=== PATIENT | female | born 2000 | race Caucasian/White ===

== ENCOUNTER 2021-10-02 07:18 | Emergency (ER) | payer BC, SELFPAY ==
--- NOTE | ~2021-10-02 | CT_ITS ---
EXAMINATION: CT ABDOMEN AND PELVIS WITHOUT CONTRAST CLINICAL INFORMATION: Right lower quadrant abdominal pain COMPARISON: None TECHNIQUE: Multidetector volumetric imaging was performed from the superior aspect of the liver through the pubic symphysis. Sagittal and coronal reformatted images were obtained on the technologist's workstation. This CT examination was performed using dose optimization techniques as appropriate, variously including the following: *Automated exposure control *Adjustment of mA and/or kV according to patient size (this includes techniques or standardized protocols for targeted exams where dose is matched to indication/reason for exam; i.e. extremities or head) *Use of iterative reconstruction technique DLP: 327 mGy-cm FINDINGS: Visualized lung bases are well aerated. The liver demonstrates normal size, contour and attenuation. The gallbladder is normal in appearance. The pancreas, spleen and adrenal glands are unremarkable. Symmetrically sized kidneys. No renal calculi or hydronephrosis bilaterally. Normal caliber loops of small and large bowel. Mild colonic stool burden. Normal appendix. Normal caliber abdominal aorta. The bladder is normal in appearance. Unremarkable CT appearance of the uterus. Small amount of free pelvic fluid, likely physiologic. No inguinal lymphadenopathy. No acute osseous abnormality. Mild dextroscoliosis of the spine, possibly positional. CT/CT abdomen pelvis wo con IMPRESSION: No CT evidence for acute abnormality within the abdomen or pelvis. Fleischner guidelines were followed.
[2021-10-02 08:58] VITALS: BP 135/79; PULSE 91; RESP 18; TEMP 36.8; O2SAT 100; BMI 17.8
[2021-10-02 09:23] LABS: MANUAL DIFF FLAG NO
[2021-10-02 09:25] LABS: Basophils Percent Auto 0.5 % (0-2); Eosinophils Percent Auto 0.4 % (0-4); Hematocrit 41.7 % (37.0-47.0); Hemoglobin 14.1 g/dl (12.0-16.0); Imm Gran Abs Auto 0.01 X10*3/uL (0.00-0.03); Imm Gran Pct Auto 0.2 % (0.0-0.4); Lymphocytes Absolute Auto 1.7 X10*3/uL (1.2-4.9); Lymphocytes Percent Auto 29.2 % (20-40); Mean Corpuscular HGB Conc 33.8 g/dl (31.0-35.0); Mean Corpuscular Hemoglobin 30.8 pg (27.0-33.0); Mean Platelet Volume 9.7 fL (9.4-12.3); Monocytes Absolute Auto 0.4 X10*3/uL (0.1-1.2); Neutrophils Absolute Auto 3.6 x10*3/uL (2.0-8.3); Neutrophils Percent Auto 62.7 % (45-73); Platelet Count 234 X10*3/uL (160-400); Red Blood Count 4.58 X10*6/uL (4.20-5.50); Red Cell Distribution Width 13.1 % (11.0-16.0); White Blood Count 5.7 X10*3/uL (4.8-10.8)
[2021-10-02 09:29] LABS: UPreg QC Valid YES; Urine Pregnancy NEGATIVE (NEGATIVE)
[2021-10-02 09:41] LABS: Appearance Urine HAZY; Color Urine YELLOW; Glucose Urine UA NEG (NEG); Leukocyte Esterase Urine NEG (NEG); Nitrite Urine NEG (NEG); UACC Culture Trigger NO; Urine Blood 3+ (NEG); Urine Ketones NEG (NEG); Urine Protein NEG (NEG-TRACE)
[2021-10-02 09:47] LABS: Alanine Aminotransferase 12 U/L (0-31); Albumin Level 4.5 g/dL (3.5-5.0); Alkaline Phosphatase 43 U/L (39-117); Anion Gap 9 (12-20); Aspartate Amino Transferase 13 U/L (5-31); Bilirubin Total 0.4 mg/dL (0.0-1.0); Blood Urea Nitrogen 10 mg/dL (9-16); Calcium 9.8 mg/dL (8.4-10.2); Carbon Dioxide 25 mmol/L (22-29); Chloride 109 mmol/L (96-108); Estimated Glomerular Filt Rate > 60; Glucose Random 102 mg/dL (60-115); Lipase 50 U/L (8-78); Potassium 4.4 mmol/L (3.3-5.1); Renal Epithelial Cells Urine TRACE /LPF; Sodium 139 mmol/L (135-145); Squamous Epithelial Cell Urine 2+ /LPF; Total Protein 7.2 g/dL (6.5-8.0)
[2021-10-02 09:48] LABS: RBC Urine 0-2 /HPF (0); WBC Urine 0-2 /HPF (0-4)
--- NOTE | 2021-10-02 11:26 | ED.ABDPAIN ---
HPI - Abdominal Pain General Chief Complaint: Abdominal Pain Stated Complaint: r side pain Time Seen by Provider: 10/02/21 11:25 Source: patient Mode of arrival: ambulatory Limitations: no limitations History of Present Illness HPI narrative: 19-year-old female presents with right lower quadrant abdominal pain that started this morning. Patient states that at 3 or 04:00 this morning she woke up because she was nauseous. She vomited twice, she had diarrhea twice, and since then she has had sharp shooting pains in her right lower quadrant. Her period started September 29, she is still on her. She thought initially it was. Cramps, but the pain is worsening. It is worse with movement, worse with cough. It is a sharp stabbing pain and she rates it a 9/10. No radiation to her back. Patient is sexually active, no new partners, she uses condoms. No vaginal discharge prior to her periods. She last ate at 06:00 this morning. No fevers. No dysuria. Patient has never had any abdominal surgeries Related Data Previous Rx's Medication Instructions Recorded ketorolac 10 mg tablet 10 mg PO QID 4 Days #16 tab 10/02/21 Allergies Allergy/AdvReac Type Severity Reaction Status Date / Time amoxicillin Allergy Hives Verified 10/02/21 08:58 Penicillins Allergy Hives Verified 10/02/21 08:58 Review of Systems Constitutional: Denies body ache(s), Denies chills, Denies fatigue, Denies fever(s), Denies headache(s), Denies malaise and Denies weakness Eyes: Denies diplopia Denies vertigo, Denies dizziness, Denies otalgia, Denies headache(s), Denies mouth pain, Denies post nasal drip, Denies sinus pain, Denies sinus pressure, Denies sore throat and Denies throat swelling Cardiovascular: Denies chest pain, Denies syncope, Denies leg edema, Denies lightheadedness, Denies Loss of Consciousness, Denies palpitations and Denies dyspnea Respiratory: Denies chest congestion, Denies cough and Denies dyspnea Gastrointestinal: Reports abdominal pain, Denies melena, Denies hematochezia, Denies coffee ground emesis, Denies constipation, Reports diarrhea, Reports nausea, Reports vomiting and Denies hematemesis Genitourinary: Denies hematuria, Denies dyspareunia, Denies dysuria, Denies pelvic pain, Denies flank pain, Denies urinary urgency, Denies vaginal discharge and Denies vaginal odor Musculoskeletal: Reports no additional musculoskeletal complaints Denies confusion, Denies vertigo, Denies dizziness, Denies syncope, Denies headache(s) and Denies weakness Psychiatric: Denies anxiety, Denies confusion and Denies depression Endocrine: Denies fatigue and Denies palpitations Allergic/Immunologic: Denies throat swelling [facility] Social History Social History Advance Directives: No Advance Directives Information Provided: Yes Physical Exam ED Vital Signs: Vital Signs - 24 hr 10/02/21 08:58 10/02/21 12:05 10/02/21 12:07 Temperature 98.3 F Pulse Rate 91 61 Respiratory Rate 18 18 18 Blood Pressure 135/79 115/71 Pulse Oximetry 100 100 10/02/21 13:00 Temperature Pulse Rate Respiratory Rate 18 Blood Pressure Pulse Oximetry BMI result Body Mass Index 17.8 Const General: No confusion Nutritional Appearance: well nourished Orientation/consciousness: No confusion Limitations: no limitations HENMT Head: Yes normal to inspection, Yes normocephalic and Yes atraumatic Ears: hearing grossly normal bilaterally, external ears normal, TM's normal bilaterally and EAC's normal General nose exam: Normal external nose present Face and sinus: Yes normal facial exam and Yes sinuses nontender Mouth: Normal oral and palatal mucosa present Throat: Yes posterior oropharynx normal Eyes Conjunctivae: conjunctivae normal Pupils: Equal, round and reactive pupils present EOM: EOMs intact bilaterally Neck Neck: Yes full ROM, Yes no lymphadenopathy and Yes supple Resp Effort & Inspection: normal respiratory effort and able to speak in complete sentences Auscultation: clear to auscultation bilaterally, no crackles, no rales, no rhonchi and no wheezes Cardio Rate: regular rate Rhythm: regular rhythm Heart sounds: S1 normal heart sound present and S2 normal heart sound present GI Inspection: Yes scaphoid Palpation (GI): Soft to palpation, Tenderness to palpation present (GI) in the epigastrum, in the RLQ, in the LUQ, in the RUQ and Rovsing's sign positive; Negative for with no rebound tenderness, Guarding due to palpation present (GI) in the RLQ and in the RUQ and not rigid Percussion: Yes normal to percussion Auscultation: normal bowel sounds General: Yes CVA tenderness on the right (Mild) Back/Spine/Pelvis Back: CVA tenderness Skin General skin exam: no rashes or lesions noted Neuro General: No confusion Cranial nerves: Yes Equal, round and reactive pupils present Extrem General: Yes normal to inspection and Yes full ROM Psych Appearance: grossly normal Affect: normal affect Attitude: cooperative Thought process: Normal thought process present Course Course Course Narrative: 21-year-old female presents with sudden-onset right lower quadrant abdominal pain that started 3 or 04:00 this morning. Patient had 2 episodes both the vomiting and diarrhea, has worsening right lower quadrant pain. On exam, patient is afebrile with stable vitals, is well appearing. Patient is tender and guarding right lower quadrant, movements are painful. Patient is tender diffusely in her abdomen, but is guarding especially right lower quadrant. Will get labs, CT abdomen, gave fluids, Zofran, morphine CBC and CMP are normal, lipase is not elevated, +3 blood in urine, most likely due to patient being on her menses. Reevaluation(s) Reevaluation #1: CT scan shows no acute abnormality ON re-exam, patient states her pain is much better Will give patient ketorolac, will give prescription for same. Gave return precautions of worsening abdominal pain, fevers, unable to keep any food down, return. Told patient to call her primary care provider on Monday for follow-up appointment Patient verbalized agreement understanding of the plan. MDM - Abdominal Pain Lab Data Result diagrams: 10/02/21 09:18 10/02/21 09:18 Labs: Lab Results 10/02/21 10/02/21 10/02/21 Range/Units 09:18 09:18 09:18 WBC 5.7 (4.8-10.8) X10*3/uL RBC 4.58 (4.20-5.50) X10*6/uL Hgb 14.1 (12.0-16.0) g/dl Hct 41.7 (37.0-47.0) % MCV 91.0 (80.0-98.0) fL MCH 30.8 (27.0-33.0) pg MCHC 33.8 (31.0-35.0) g/dl RDW 13.1 (11.0-16.0) % Plt Count 234 (160-400) X10*3/uL MPV 9.7 (9.4-12.3) fL Immature Gran % (Auto) 0.2 (0.0-0.4) % Neut % (Auto) 62.7 (45-73) % Lymph % (Auto) 29.2 (20-40) % Mcminn % (Auto) 7.0 (2-11) % Eos % (Auto) 0.4 (0-4) % Baso % (Auto) 0.5 (0-2) % Lymph # (Auto) 1.7 (1.2-4.9) X10*3/uL Mcminn # (Auto) 0.4 (0.1-1.2) X10*3/uL Eos # (Auto) 0.0 (0.0-0.4) X10*3/uL Baso # (Auto) 0.0 (0.0-0.2) X10*3/uL Abs Immat Gran (auto) 0.01 (0.00-0.03) X10*3/uL Absolute Neuts (auto) 3.6 (2.0-8.3) x10*3/uL Absolute Nucleated RBC 0.000 (0.0-0.012) X10*3/uL Nucleated RBC % (auto) 0.0 (0.0-0.2) /100WBC Sodium 139 (135-145) mmol/L Potassium 4.4 (3.3-5.1) mmol/L Chloride 109 H (96-108) mmol/L Carbon Dioxide 25 (22-29) mmol/L Anion Gap 9 L (12-20) BUN 10 (9-16) mg/dL Creatinine 0.85 (0.5-1.4) mg/dL Estim Creat Clear Calc 87.0 Estimated GFR > 60 Random Glucose 102 (60-115) mg/dL Calcium 9.8 (8.4-10.2) mg/dL Total Bilirubin 0.4 (0.0-1.0) mg/dL AST 13 (5-31) U/L ALT 12 (0-31) U/L Alkaline Phosphatase 43 (39-117) U/L Total Protein 7.2 (6.5-8.0) g/dL Albumin 4.5 (3.5-5.0) g/dL Lipase 50 (8-78) U/L Urine Color Urine Appearance Urine pH (5.0-8.0) Ur Specific Clayton (1.005-1.025) Urine Protein (NEG-TRACE) MG/DL Urine Glucose (UA) (NEG) MG/DL Urine Ketones (NEG) MG/DL Urine Blood (NEG) Urine Nitrite (NEG) Ur Leukocyte Esterase (NEG) Urine RBC (0) /HPF Urine WBC (0-4) /HPF Ur Squamous Epith Cells /LPF Ur Renal Epithelial Cell /LPF Urine Bacteria /LPF Urine Test NEGATIVE (NEGATIVE) COVID-19 ([facility]) (Negative) COVID-19 Clin Com 10/02/21 10/02/21 Range/Units 09:18 12:10 WBC (4.8-10.8) X10*3/uL RBC (4.20-5.50) X10*6/uL Hgb (12.0-16.0) g/dl Hct (37.0-47.0) % MCV (80.0-98.0) fL MCH (27.0-33.0) pg MCHC (31.0-35.0) g/dl RDW (11.0-16.0) % Plt Count (160-400) X10*3/uL MPV (9.4-12.3) fL Immature Gran % (Auto) (0.0-0.4) % Neut % (Auto) (45-73) % Lymph % (Auto) (20-40) % Mcminn % (Auto) (2-11) % Eos % (Auto) (0-4) % Baso % (Auto) (0-2) % Lymph # (Auto) (1.2-4.9) X10*3/uL Mcminn # (Auto) (0.1-1.2) X10*3/uL Eos # (Auto) (0.0-0.4) X10*3/uL Baso # (Auto) (0.0-0.2) X10*3/uL Abs Immat Gran (auto) (0.00-0.03) X10*3/uL Absolute Neuts (auto) (2.0-8.3) x10*3/uL Absolute Nucleated RBC (0.0-0.012) X10*3/uL Nucleated RBC % (auto) (0.0-0.2) /100WBC Sodium (135-145) mmol/L Potassium (3.3-5.1) mmol/L Chloride (96-108) mmol/L Carbon Dioxide (22-29) mmol/L Anion Gap (12-20) BUN (9-16) mg/dL Creatinine (0.5-1.4) mg/dL Estim Creat Clear Calc Estimated GFR Random Glucose (60-115) mg/dL Calcium (8.4-10.2) mg/dL Total Bilirubin (0.0-1.0) mg/dL AST (5-31) U/L ALT (0-31) U/L Alkaline Phosphatase (39-117) U/L Total Protein (6.5-8.0) g/dL Albumin (3.5-5.0) g/dL Lipase (8-78) U/L Urine Color YELLOW Urine Appearance HAZY Urine pH 6.0 (5.0-8.0) Ur Specific Clayton 1.010 (1.005-1.025) Urine Protein NEG (NEG-TRACE) MG/DL Urine Glucose (UA) NEG (NEG) MG/DL Urine Ketones NEG (NEG) MG/DL Urine Blood 3+ H (NEG) Urine Nitrite NEG (NEG) Ur Leukocyte Esterase NEG (NEG) Urine RBC 0-2 (0) /HPF Urine WBC 0-2 (0-4) /HPF Ur Squamous Epith Cells 2+ /LPF Ur Renal Epithelial Cell TRACE /LPF Urine Bacteria NONE /LPF Urine Test (NEGATIVE) COVID-19 ([facility]) Negative (Negative) COVID-19 Clin Com See Note Discharge Plan Discharge Clinical Impression: Abdominal pain Patient Disposition: Home, Self-Care Instructions: Abdominal Pain (ED) Additional Instructions: Please return to emergency room if you have worsening abdominal pain, fevers, vomiting INR unable to eat or drink, or for any other new or concerning symptoms. For your prescription for the pain medication as prescribed, do not take any ibuprofen while your taking this, call your primary care provider on Monday for follow-up appointment from today's emergency room visit Prescriptions: New ketorolac 10 mg tablet 10 mg PO QID 4 Days Qty: 16 0RF Stand Alone Forms: Work/School Release
[2021-10-02] MEDS: 0.9 % Sodium Chloride 1,000 ML 999 ML IV (12:02)
[2021-10-02] MEDS: ondansetron HCL 4 MG/2 ML VIAL IVPUSH (12:04)
[2021-10-02 12:05] VITALS: RESP 18
[2021-10-02] MEDS: Morphine Sulfate 4 MG/ML CARTRIDGE IVPUSH (12:05)
[2021-10-02 12:07] VITALS: BP 115/71; PULSE 61; RESP 18; O2SAT 100
[2021-10-02 12:29] LABS: COVID-19 Test Negative (Negative)
[2021-10-02 13:00] VITALS: RESP 18
[2021-10-02] MEDS: Ketorolac Tromethamine 15 MG/ML VIAL IVPUSH (13:56)
--- NOTE | 2021-10-02 14:11 | PC.NURSE ---
NO FURTHER N/V/D WHILE IN ED. SKIN WPD, STEADY GAIT, NO DIZZINESS, NAD.
== END 2021-10-02 14:12 | disposition home or self-care (01) ==
PROVIDERS: Physician Assistant; Emergency Provider Emergency Medicine
DX: R10.31 Right lower quadrant pain (principal); R11.10 Vomiting, unspecified; R19.7 Diarrhea, unspecified; Z20.822 Contact with and (suspected) exposure to COVID-19
CPT/HCPCS: 36415; 74176; 80053; 81001; 81025; 83690; 85025; 87635; 99284; J1885; J2270; J2405

== ENCOUNTER 2021-10-13 08:46 | Emergency (ER) | payer BC, SELFPAY ==
--- NOTE | 2021-10-13 | ECG_ITS ---
Test Reason : syncope Blood Pressure : / mmHG Vent. Rate : 096 BPM Atrial Rate : 096 BPM P-R Int : 120 ms QRS Dur : 084 ms QT Int : 328 ms P-R-T Axes : 023 072 059 degrees QTc Int : 414 ms Normal sinus rhythm Normal ECG No previous ECGs available Referred By: Generic ED Physician Electronically Signed By:Tim Lama
--- NOTE | ~2021-10-13 | CT_ITS ---
EXAMINATION: CT HEAD WITHOUT CONTRAST CLINICAL INFORMATION: Near syncope. Headache. Rule out bleed or mass. COMPARISON: None TECHNIQUE: Contiguous axial imaging was performed from the skull base to vertex without intravenous administration of contrast. This CT examination was performed using dose optimization techniques as appropriate, variously including the following: *Automated exposure control *Adjustment of mA and/or kV according to patient size (this includes techniques or standardized protocols for targeted exams where dose is matched to indication/reason for exam; i.e. extremities or head) *Use of iterative reconstruction technique DLP: 577 mGy-cm FINDINGS: There is no evidence of acute intracranial hemorrhage or territorial infarction. No abnormal mass effect or midline shift is seen. Francis to white matter differentiation is well preserved. No extra-axial fluid collections are identified. The ventricles are normal in size. There is no abnormal attenuation within the brain parenchyma. The osseous structures and soft tissues are normal. The mastoid air cells and visualized portions of the paranasal sinuses are well aerated. CT/CT head/brain wo con IMPRESSION: Unremarkable exam.
[2021-10-13 08:50] VITALS: BP 134/85; PULSE 89; RESP 18; TEMP 36.6; O2SAT 100; BMI 17.2
[2021-10-13 09:10] LABS: MANUAL DIFF FLAG NO
[2021-10-13 09:11] LABS: Basophils Absolute Auto 0.1 X10*3/uL (0.0-0.2); Basophils Percent Auto 0.6 % (0-2); Eosinophils Absolute Auto 0.1 X10*3/uL (0.0-0.4); Eosinophils Percent Auto 0.6 % (0-4); Hemoglobin 14.6 g/dl (12.0-16.0); Imm Gran Abs Auto 0.01 X10*3/uL (0.00-0.03); Imm Gran Pct Auto 0.1 % (0.0-0.4); Lymphocytes Absolute Auto 2.3 X10*3/uL (1.2-4.9); Mean Corpuscular Hemoglobin 30.5 pg (27.0-33.0); Mean Platelet Volume 10.3 fL (9.4-12.3); Monocytes Absolute Auto 0.5 X10*3/uL (0.1-1.2); Monocytes Percent Auto 6.9 % (2-11); Neutrophils Absolute Auto 4.8 x10*3/uL (2.0-8.3); Neutrophils Percent Auto 61.8 % (45-73); Platelet Count 233 X10*3/uL (160-400); Red Blood Count 4.78 X10*6/uL (4.20-5.50); Red Cell Distribution Width 12.8 % (11.0-16.0); White Blood Count 7.8 X10*3/uL (4.8-10.8)
[2021-10-13 09:27] LABS: IDNOW Serial# 16C4AD1C; Influenza A Negative (Negative); Influenza B2 Negative (Negative)
[2021-10-13 09:31] LABS: Alanine Aminotransferase 11 U/L (0-31); Albumin Level 4.7 g/dL (3.5-5.0); Alkaline Phosphatase 45 U/L (39-117); Anion Gap 15 (12-20); Aspartate Amino Transferase 14 U/L (5-31); Bilirubin Direct 0.2 mg/dL (0.0-0.5); Bilirubin Total 0.6 mg/dL (0.0-1.0); Blood Urea Nitrogen 9 mg/dL (9-16); Calcium 10.2 mg/dL (8.4-10.2); Carbon Dioxide 19 mmol/L (22-29); Chloride 109 mmol/L (96-108); Creatinine Clr Calc Pharmacy 86.2; Estimated Glomerular Filt Rate > 60; Glucose Random 99 mg/dL (60-115); Magnesium 2.1 mg/dL (1.6-2.6); Potassium 4.6 mmol/L (3.3-5.1); Sodium 138 mmol/L (135-145); Total Protein 7.3 g/dL (6.5-8.0); Troponin-I High Sensitivity < 3.5 ng/L (<3.5-17.0)
[2021-10-13 09:34] LABS: COVID-19 Test Negative (Negative)
[2021-10-13 09:46] LABS: HCG Quantitative < 2 mIU/mL
--- NOTE | 2021-10-13 10:27 | ED.GENADULT ---
HPI - General Adult General Chief complaint: General Medical Stated complaint: NEAR SYNCOPE Time Seen by Provider: 10/13/21 10:09 Source: patient Mode of arrival: wheelchair Limitations: no limitations History of Present Illness HPI narrative: 21-year-old female who presents emergency department for evaluation of headache, nausea, vomiting and near syncope. 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 She states that she was sitting and then developed nausea. She got up and went to the bathroom and vomited. She states that when she was walking back to her chair she felt lightheaded and dizzy. She states that she almost passed out but did not lose consciousness. She was then brought to emergency department for evaluation. Patient states that over the past 6 months she has had multiple episodes of vomiting. She states that it normally happens in the morning but she can sometimes vomit all day long. She states that her PCP has referred her to a back tufter. The patient states that over the past 6 months she has also been getting migraine-like headaches. She states this morning at 05:00 hours she did wake up with a headache. She points to the frontal area of her head describes the pain is a constant, throbbing sensation which is 10/10 at its worse and is currently 10/10 in the emergency department. Patient was seen in the emergency department on 10/02/2021 for nausea vomiting and right lower quad abdominal pain. She had a CT scan of the abdomen pelvis which was unremarkable and normal labs. She states her last menstrual period was 09/29/2021. MD complaint: Headache Location: head Radiation: non-radiation Severity: severe Severity scale (1-10): 10 Quality: other (Throbbing) Pain Consistency: constant Relieving factors: none Exacerbating factors: none Associated symptoms: nausea/vomiting Treatments prior to arrival: none Related Data Previous Rx's Medication Instructions Recorded ketorolac 10 mg tablet 10 mg PO QID 4 Days #16 tab 10/02/21 metoclopramide HCl 10 mg tablet 10 mg PO Q6H PRN #14 tab 10/13/21 (Reglan) ondansetron 4 mg disintegrating 4 mg PO Q6-8H PRN #14 tab 10/13/21 tablet Allergies Allergy/AdvReac Type Severity Reaction Status Date / Time amoxicillin Allergy Hives Verified 10/02/21 08:58 Penicillins Allergy Hives Verified 10/02/21 08:58 Review of Systems Review of Systems: Yes all other systems are reviewed and are negative [facility] Past Medical History [facility] Narrative: Past medical history: Bipolar disorder. Past surgical history: The patient states she was 1 years old she had benign masses and left axilla and left neck which were removed. Social history: The patient does vape nicotine products. She denies alcohol use. She denies drug use. The patient works here as a patient observer. Social History Social History Advance Directives: No Advance Directives Information Provided: No Physical Exam ED Vital Signs: Vital Signs - 24 hr 10/13/21 08:50 10/13/21 11:07 Temperature 97.8 F Pulse Rate 89 66 Respiratory Rate 18 18 Blood Pressure 134/85 122/81 Pulse Oximetry 100 100 BMI result Body Mass Index 17.2 Const Other: Very pleasant, cooperative, female patient, she is actively vomiting and dry heaving while I was interviewing her, she answers all questions appropriately. Orientation/consciousness: oriented to person and oriented to place HENMN Head: Yes normal to inspection, Yes normocephalic and Yes atraumatic Ears: external ears normal General nose exam: Normal external nose present Face and sinus: Yes normal facial exam Mouth: Normal oral and palatal mucosa present Throat: Yes posterior oropharynx normal Eyes General: appearance normal, both eyes and all related structures Pupils: Equal, round and reactive pupils present Neck Neck: Yes normal visual inspection, Yes no lymphadenopathy, Yes trachea midline and Yes supple Chest Chest palpation & inspection: normal inspection of the chest and normal palpation of entire chest wall Resp Effort & Inspection: normal respiratory effort and able to speak in complete sentences Auscultation: clear to auscultation bilaterally Cardio Rate: regular rate Rhythm: regular rhythm Heart sounds: S1 normal heart sound present, S2 normal heart sound present and no murmurs GI Inspection: Yes normal to inspection Palpation (GI): Soft to palpation, Tenderness to palpation present (GI) in the epigastrum (Moderate), in the LLQ (Mild), in the RLQ (Mild) and suprapubicly (Mild) and no guarding Auscultation: normal bowel sounds General: Yes no CVA tenderness Back/Spine/Pelvis Back: no CVA tenderness Skin General skin exam: no rashes or lesions noted Neuro General: oriented to person and oriented to place Cranial nerves: Yes CN's II-XII intact bilaterally and Yes Equal, round and reactive pupils present Cognition (Neuro): normal cognition Motor exam (neuro): 5/5 motor strength present throughout Extrem General: Yes normal to inspection Psych Appearance: grossly normal Speech and movement: Normal speech and movement present Affect: normal affect Attitude: cooperative Thought process: Normal thought process present Thought content: Normal thought content present Course Course Course Narrative: 21-year-old female who presents emergency department for evaluation of nausea, vomiting, headache and a near syncopal episode. The patient has been having episodes of persistent nausea and vomiting over the last 6 months. The patient also has been experiencing migraine-like headaches over the past 6 months which are new for her. The patient's vital signs were normal. Physical examination did reveal diffuse abdominal tenderness with no localizing tenderness. Patient's neurologic exam was nonfocal. The patient's near-syncope was most likely vasovagal. I will get a CT scan of the patient's head since she has new headaches for the past 6 months. Laboratory evaluation will be obtained. Patient will be treated with Reglan 10 mg IV, Benadryl 50 mg IV and Toradol 30 mg IV. She was also ordered to get normal saline x1 L. 1251: Patient's laboratory evaluation was unremarkable. CT scan of the brain did not reveal any clear cause for headaches. At this time I believe that her symptoms are consistent with a migraine syndrome and the nausea and vomited triggered a vasovagal event in her causing her to have near syncope. I did discuss this with her. The patient is feeling better after the above treatment and will be discharged home. She was given a note not return to work until 10/15/2021. The patient was advised to take the following regimen for headaches nausea and vomiting: Reglan 10 mg, Benadryl 50 mg, Excedrin migraine 2 tablets. She was also given a prescription for Zofran ODT. Medical Decision Making Lab Data Result diagrams: 10/13/21 09:04 10/13/21 09:03 Labs: Lab Results 10/13/21 10/13/21 10/13/21 Range/Units 09:03 09:03 09:03 WBC (4.8-10.8) X10*3/uL RBC (4.20-5.50) X10*6/uL Hgb (12.0-16.0) g/dl Hct (37.0-47.0) % MCV (80.0-98.0) fL MCH (27.0-33.0) pg MCHC (31.0-35.0) g/dl RDW (11.0-16.0) % Plt Count (160-400) X10*3/uL MPV (9.4-12.3) fL Immature Gran % (Auto) (0.0-0.4) % Neut % (Auto) (45-73) % Lymph % (Auto) (20-40) % [place] % (Auto) (2-11) % Eos % (Auto) (0-4) % Baso % (Auto) (0-2) % Lymph # (Auto) (1.2-4.9) X10*3/uL [place] # (Auto) (0.1-1.2) X10*3/uL Eos # (Auto) (0.0-0.4) X10*3/uL Baso # (Auto) (0.0-0.2) X10*3/uL Abs Immat Gran (auto) (0.00-0.03) X10*3/uL Absolute Neuts (auto) (2.0-8.3) x10*3/uL Absolute Nucleated RBC (0.0-0.012) X10*3/uL Nucleated RBC % (auto) (0.0-0.2) /100WBC Sodium 138 (135-145) mmol/L Potassium 4.6 (3.3-5.1) mmol/L Chloride 109 H (96-108) mmol/L Carbon Dioxide 19 L (22-29) mmol/L Anion Gap 15 (12-20) BUN 9 (9-16) mg/dL Creatinine 0.83 (0.5-1.4) mg/dL Estim Creat Clear Calc 86.2 Estimated GFR > 60 Random Glucose 99 (60-115) mg/dL Calcium 10.2 (8.4-10.2) mg/dL Magnesium 2.1 (1.6-2.6) mg/dL Total Bilirubin 0.6 (0.0-1.0) mg/dL Direct Bilirubin 0.2 (0.0-0.5) mg/dL AST 14 (5-31) U/L ALT 11 (0-31) U/L Alkaline Phosphatase 45 (39-117) U/L Troponin I High Sens < 3.5 (<3.5-17.0) ng/L Total Protein 7.3 (6.5-8.0) g/dL Albumin 4.7 (3.5-5.0) g/dL Beta HCG, Quant < 2 mIU/mL COVID-19 (DINH) (Negative) COVID-19 Clin Com Influenza Type A (DAISY) Negative (Negative) Influenza Type B (DAISY) Negative (Negative) Influenza A & B Note See Note 10/13/21 10/13/21 Range/Units 09:04 09:11 WBC 7.8 (4.8-10.8) X10*3/uL RBC 4.78 (4.20-5.50) X10*6/uL Hgb 14.6 (12.0-16.0) g/dl Hct 43.0 (37.0-47.0) % MCV 90.0 (80.0-98.0) fL MCH 30.5 (27.0-33.0) pg MCHC 34.0 (31.0-35.0) g/dl RDW 12.8 (11.0-16.0) % Plt Count 233 (160-400) X10*3/uL MPV 10.3 (9.4-12.3) fL Immature Gran % (Auto) 0.1 (0.0-0.4) % Neut % (Auto) 61.8 (45-73) % Lymph % (Auto) 30.0 (20-40) % [place] % (Auto) 6.9 (2-11) % Eos % (Auto) 0.6 (0-4) % Baso % (Auto) 0.6 (0-2) % Lymph # (Auto) 2.3 (1.2-4.9) X10*3/uL [place] # (Auto) 0.5 (0.1-1.2) X10*3/uL Eos # (Auto) 0.1 (0.0-0.4) X10*3/uL Baso # (Auto) 0.1 (0.0-0.2) X10*3/uL Abs Immat Gran (auto) 0.01 (0.00-0.03) X10*3/uL Absolute Neuts (auto) 4.8 (2.0-8.3) x10*3/uL Absolute Nucleated RBC 0.000 (0.0-0.012) X10*3/uL Nucleated RBC % (auto) 0.0 (0.0-0.2) /100WBC Sodium (135-145) mmol/L Potassium (3.3-5.1) mmol/L Chloride (96-108) mmol/L Carbon Dioxide (22-29) mmol/L Anion Gap (12-20) BUN (9-16) mg/dL Creatinine (0.5-1.4) mg/dL Estim Creat Clear Calc Estimated GFR Random Glucose (60-115) mg/dL Calcium (8.4-10.2) mg/dL Magnesium (1.6-2.6) mg/dL Total Bilirubin (0.0-1.0) mg/dL Direct Bilirubin (0.0-0.5) mg/dL AST (5-31) U/L ALT (0-31) U/L Alkaline Phosphatase (39-117) U/L Troponin I High Sens (<3.5-17.0) ng/L Total Protein (6.5-8.0) g/dL Albumin (3.5-5.0) g/dL Beta HCG, Quant mIU/mL COVID-19 (DINH) Negative (Negative) COVID-19 Clin Com See Note Influenza Type A (DAISY) (Negative) Influenza Type B (DAISY) (Negative) Influenza A & B Note Discharge Plan Discharge Clinical Impression: Near syncope Migraine Qualifiers: Migraine type: unspecified Intractability: not intractable Vomiting Qualifiers: Vomiting type: unspecified Nausea presence: with nausea Qualified Code(s): R11.2 - Nausea with vomiting, unspecified Patient Disposition: Home, Self-Care Instructions: Migraine Headache (ED) Additional Instructions: Your laboratory evaluation was unremarkable. Your test was negative. The CT scan of your brain did not reveal any abnormalities to explain your headaches, nausea or vomiting. Sometimes migraine headaches can cause persistent nausea and vomiting. I believe that this may be the cause of your nausea and vomiting today. Sometimes when you vomit, this triggers the vagal nerve which causes your blood pressure dropped, your pulse dropped and can make you feel like you are going to pass out. It is important that you follow-up with your back tufter to have a GI workup to look for other causes for persistent nausea and vomiting as well. I want you to take the following 3 medications together every 6 hours as needed for headache, nausea or vomiting. Reglan (metoclopramide) in 10 mg, 1 pill Benadryl 25 mg, 2 pills Excedrin migraine, 2 pills. After you take these medications, lie down in a dark quiet room and try to fall asleep. These medications will make you sleepy, do not drive or work after taking these medications. I am also prescribing Zofran (ondansetron) ODT Take Zofran ODT 4 mg pills, 1 pill dissolved in your mouth every 8 hours as needed for nausea and vomiting. Please return to the emergency department if your symptoms get worse or if you develop any symptoms that are concerning to you. Please see the work note. Prescriptions: New ondansetron 4 mg tablet,disintegrating 4 mg PO Q6-8H PRN (Reason: nausea and vomiting) Qty: 14 0RF metoclopramide HCl [Reglan] 10 mg tablet 10 mg PO Q6H PRN (Reason: nausea and vomiting) Qty: 14 0RF No Action ketorolac 10 mg tablet 10 mg PO QID 4 Days Qty: 16 0RF
[2021-10-13] MEDS: 0.9 % Sodium Chloride 1,000 ML 999 ML IV (11:00)
[2021-10-13] MEDS: Ketorolac Tromethamine 15 MG/ML VIAL IVPUSH (11:01)
[2021-10-13] MEDS: diphenhydrAMINE HCL 50 MG/ML VIAL IVPUSH (11:01)
[2021-10-13] MEDS: Metoclopramide HCl 10 MG/2 ML VIAL IVPUSH (11:02)
[2021-10-13 11:07] VITALS: BP 122/81; PULSE 66; RESP 18; O2SAT 100
[2021-10-13 13:03] VITALS: BP 116/76; PULSE 84; RESP 17; O2SAT 97
== END 2021-10-13 13:08 | disposition home or self-care (01) ==
PROVIDERS: Emergency Provider Emergency Medicine Emergency Medical Services
DX: G43.909 Migraine, unspecified, not intractable, without status migrainosus (principal); R55 Syncope and collapse; R42 Dizziness and giddiness; R11.2 Nausea with vomiting, unspecified; R10.31 Right lower quadrant pain; Z20.822 Contact with and (suspected) exposure to COVID-19; Z79.899 Other long term (current) drug therapy
CPT/HCPCS: 36415; 70450; 80053; 82248; 83735; 84484; 84702; 85025; 87502; 87635; 93005; 96361; 96374; 96375; 99283; 99284; J1200; J1885; J2765

== ENCOUNTER → 2021-11-03 11:09 | Outpatient (BNVA) | payer OTHER, SELFPAY | PROVIDERS: Visit Provider Physician Assistant | DX: Z13.89 Encounter for screening for other disorder (principal) | CPT/HCPCS: 70150; 99203 ==

== ENCOUNTER → 2021-11-05 11:43 | Outpatient (BNVA) | payer OTHER, SELFPAY | PROVIDERS: Visit Provider Physician Assistant | DX: Z13.89 Encounter for screening for other disorder (principal) | CPT/HCPCS: 99213 ==

== ENCOUNTER → 2021-11-08 13:29 | Outpatient (BNVA) | payer OTHER, SELFPAY | PROVIDERS: Visit Provider Internal Medicine | DX: Z13.89 Encounter for screening for other disorder (principal) | CPT/HCPCS: 70450; 99214 ==

== ENCOUNTER → 2021-11-23 09:29 | Outpatient (BNVA) | payer OTHER, SELFPAY | PROVIDERS: Visit Provider Internal Medicine | DX: Z13.89 Encounter for screening for other disorder (principal) | CPT/HCPCS: 99213 ==

== ENCOUNTER 2022-10-02 11:05 | Emergency (ER) | payer BC, SELFPAY ==
[2022-10-02 11:12] VITALS: BP 126/71; PULSE 65; RESP 15; TEMP 36.7; O2SAT 100; BMI 18.3
--- NOTE | 2022-10-02 12:00 | ED.ANIMALBIT ---
HPI - Animal Bite General Chief Complaint: Animal Bite Stated Complaint: dog bite Time Seen by Provider: 10/02/22 11:16 Source: patient Mode of arrival: ambulatory Limitations: no limitations History of Present Illness HPI narrative: 22 yo female presents to the ER for evaluation of small laceration to her left nare sustained accidentally this morning when she was playing with her small dog at home. she states she bent down to play with him and his bottom tooth got caught in her left nostril causing a small laceration. No active bleeding. dog is utd on vaccinations. patient is utd on tdap. complaint: animal bite Onset (ago): minute(s) Animal: dog Description of animal: household pet Mechanism: bite Location: face Severity scale (1-10): 1 Context: playing with animal Associated symptoms: none Treatments prior to arrival: irrigation Related Data Patient tetanus UTD: Yes Previous Rx's Medication Instructions Recorded ketorolac 10 mg tablet 10 mg PO QID 4 days #16 tabs 10/02/21 metoclopramide HCl 10 mg tablet 10 mg PO Q6H PRN nausea and 10/13/21 (Reglan) vomiting #14 tabs ondansetron 4 mg disintegrating 4 mg PO Q6-8H PRN nausea and 10/13/21 tablet vomiting #14 tabs doxycycline hyclate 100 mg tablet 100 mg PO BID #6 tabs 10/02/22 metronidazole 500 mg tablet 500 mg PO Q8H 3 days #9 tabs 10/02/22 Allergies Allergy/AdvReac Type Severity Reaction Status Date / Time amoxicillin Allergy Hives Verified 10/02/21 08:58 Penicillins Allergy Hives Verified 10/02/21 08:58 Review of Systems Review of Systems: Yes all other systems are reviewed and are negative [facility] Social History Social History Alcohol intake: current Alcohol intake frequency: a few times a month Smoked in Last 30 Days: No Use of substances other than those prescribed or required for medical reasons: No Advance Directives: No Advance Directives Information Provided: No Physical Exam ED Vital Signs: Vital Signs - 24 hr 10/02/22 11:12 Temperature 98.0 F Pulse Rate 65 Respiratory Rate 15 Blood Pressure 126/71 Pulse Oximetry 100 Oxygen Delivery Method Room Air BMI result Body Mass Index 18.3 Appearance: Alert. Oriented X3. No acute distress. HEENT: right nare with a tiny <0.5cm superficial laceration to the inner aspect of the nare, no active bleeding. CVS: Normal heart rate and rhythm. Pulses normal. Respiratory: No respiratory distress. Skin: Skin warm and dry. Normal skin color. Normal skin turgor. No rashes. Extremities: normal inspection, no wounds on the extremities Neuro: Oriented X 3. No motor deficit. No sensory deficit. Medical Decision Making Medical Decision Making MDM Narrative: 22-year-old female presents to the ER for evaluation of a dog scratch to the inner portion of her right knee air. Wound was sustained accidentally earlier this morning when she was playing with her small dog at home. The laceration is very small, on the inner portion of her right near, no active bleeding. It was irrigated with normal saline. Dermabond was used to close the wound. No area able to be sutured for repair. She is allergic to amoxicillin, wound is low risk for infection but it is her face so we will give a few days of doxycycline/ Flagyl for anaerobic coverage. Wound care discussed with patient. Stable for discharge home. All questions were answered. Differential Diagnosis Differential Diagnoses: The differential diagnosis associated with the presentation includes dog bite to the face, superficial abrasion, avulsion External Record Review External record reviewed: Outpatient record and Prior outpatient labs Prescription Management I considered prescription management with: Antibiotic Procedures Laceration Laceration 1: Site: face Size (cm): 0.2 Description: linear Depth: simple, single layer Pre-repair: irrigated extensively Skin layer closed with: other (dermabond) Critical Care Time Critical Care Time Critical Care Time: No Discharge Plan Discharge Clinical Impression: Bite by animal Patient Disposition: Home, Self-Care Instructions: Animal Bite (ED) Additional Instructions: Skin glue was used to close the small laceration on your nose This will come off on its own, usually within a week Do not blow your nose or scratch your nose for the next few days Take the prescribed antibiotics to help prevent infection. Follow-up with your doctor as needed. Prescriptions: New doxycycline hyclate 100 mg tablet 100 mg PO BID Qty: 6 0RF metronidazole 500 mg tablet 500 mg PO Q8H 3 Days Qty: 9 0RF No Action ketorolac 10 mg tablet 10 mg PO QID 4 Days Qty: 16 0RF ondansetron 4 mg tablet,disintegrating 4 mg PO Q6-8H PRN (Reason: nausea and vomiting) Qty: 14 0RF metoclopramide HCl [Reglan] 10 mg tablet 10 mg PO Q6H PRN (Reason: nausea and vomiting) Qty: 14 0RF
--- NOTE | 2022-10-02 12:23 | PC.NURSE ---
Patient presents after being bitten on her nose by dog. According to patient she was bending down to the dog and the dog looked up and a tooth got hooked on her nose and when they she ended up getting a tear on her nose. Patient is otherwise well appearing.
== END 2022-10-02 12:33 | disposition home or self-care (01) ==
PROVIDERS: Emergency Provider Emergency Medicine
DX: S01.81XA Laceration without foreign body of other part of head, initial encounter (principal); R51.9 Headache, unspecified; W26.9XXA Contact with unspecified sharp object(s), initial encounter; Y93.9 Activity, unspecified; Y92.9 Unspecified place or not applicable; Y99.9 Unspecified external cause status
CPT/HCPCS: 12011; 99284

== ENCOUNTER 2024-03-21 09:02 | Emergency (ER) | payer BC, SELFPAY ==
[2024-03-21 09:06] VITALS: BP 116/79; PULSE 83; RESP 16; TEMP 36.6; O2SAT 99; BMI 17.0
--- NOTE | 2024-03-21 09:14 | ED.HA ---
HPI - Headache General Chief Complaint: Headache Stated Complaint: Migraine Time Seen by Provider: 03/21/24 09:04 Source: patient Mode of arrival: ambulatory Limitations: no limitations History of Present Illness ED Provider: DAVID BEGUM PA-C HPI Narrative: 23 year old healthy female presents to the ED today for evaluation of intermittent headache x3 days. Reports waking up this morning with spots to her vision, prior to onset of headache. Endorses associated nausea and vomiting. Admits to history of migraines and states this feels similar however it is no longer responding to OTC medications. She does not have abortive migraine meds. No red flag symptoms. Denies fever, chills, dizziness, further vision changes, neck pain, jaw claudication. Denies recent head strike/ injury/ trauma. Denies chance of . No known sick contacts. Vaccinations UTD. Related Data Previous Rx's ?Medication ?Instructions ?Recorded ketorolac 10 mg tablet 10 mg PO QID 4 days #16 tabs 10/02/21 metoclopramide HCl 10 mg tablet 10 mg PO Q6H PRN nausea and 10/13/21 (Reglan) vomiting #14 tabs ondansetron 4 mg disintegrating 4 mg PO Q6-8H PRN nausea and 10/13/21 tablet vomiting #14 tabs doxycycline hyclate 100 mg tablet 100 mg PO BID #6 tabs 10/02/22 metronidazole 500 mg tablet 500 mg PO Q8H 3 days #9 tabs 10/02/22 diphenhydramine HCl 50 mg tablet 50 mg PO Q8H PRN headache #5 tabs 03/21/24 (Benadryl Allergy) ketorolac 10 mg tablet 10 mg PO Q8H PRN headache #10 tabs 03/21/24 metoclopramide HCl 10 mg tablet 10 mg PO Q6H PRN headache #5 tabs 03/21/24 (Reglan) Allergies Allergy/AdvReac Type Severity Reaction Status Date / Time amoxicillin Allergy Hives Verified 03/21/24 09:11 Penicillins Allergy Hives Verified 03/21/24 09:11 metoclopramide [From Reglan] AdvReac Anxiety Verified 03/21/24 09:49 Review of Systems Review of Systems: Constitutional: No fever, chills, fatigue, night sweats, weight changes ENT/Mouth: No ear pain, hearing loss, nasal congestion, sinus pain, rhinorrhea, sore throat Eyes: No eye pain, swelling, redness, vision changes, discharge, photophobia Cardio: No chest pain, palpitations, BOBBY, orthopnea, peripheral edema Pulm: No SOB, cough, sputum, wheezing, dyspnea, hemoptysis GI: No nausea, vomiting, hematemesis, abdominal pain, diarrhea, constipation, hematochezia, melena : No irregular bleeding, dysuria, frequency, urgency, hesitancy, hematuria, flank pain, urinary flow changes, urinary incontinence or retention MSK: No back pain, neck pain, joint pain, myalgias Skin: No lesions, rashes Neuro: No weakness, numbness, paresthesias, LOC, dizziness, +headache Psych: No anxiety/panic, depression, SI/HI, AH/VH All other systems reviewed and are negative. [facility] Past Medical History Attestation statement: The following information was validated with the patient. Source: old records reviewed and nursing notes reviewed Social History Social History Alcohol intake: current Alcohol intake frequency: a few times a month Advance Directives: No Advance Directives Information Provided: No Do you have a plan to hurt others: No Plan Physical Exam Vital Signs: Vital Signs: Last Vital Signs Temp 97.8 F 03/21/24 09:06 Pulse 83 03/21/24 09:06 Resp 16 03/21/24 09:06 BP 116/79 03/21/24 09:06 Pulse Ox 99 03/21/24 09:06 O2 Del Method Room Air 03/21/24 09:06 BMI result Body Mass Index 17.0 Vital signs stable Const: General: cooperative, healthy appearing, comfortable and no acute distress Orientation/consciousness: patient oriented x3 Limitations: no limitations HEENT: Head: Yes normal to inspection, Yes No palpable skull fracture present, Yes normocephalic, Yes atraumatic, No scalp tenderness and No Temporal artery tenderness present Ears: hearing grossly normal bilaterally, external ears normal, TM's normal bilaterally, EAC's normal, mastoids normal and no periauricular adenopathy Face and sinus: Yes normal facial exam and Yes sinuses nontender Mouth: Normal oral and palatal mucosa present and moist mucous membranes Eyes: General: appearance normal, both eyes and all related structures Conjunctivae: conjunctivae normal Sclerae: sclerae normal Pupils: Equal, round and reactive pupils present Direct Ophthalmoscopy: normal light reflex, no photophobia, no papilledema and fundi normal bilaterally Neck: Neck: Yes normal visual inspection, Yes full ROM, Yes no lymphadenopathy and Yes no meningeal signs Resp: Effort & Inspection: normal respiratory effort and able to speak in complete sentences Auscultation: clear to auscultation bilaterally Cardio: Rate: regular rate Rhythm: regular rhythm Back/Spine/Pelvis: Other: No midline spinous tenderness or step off deformity. No paraspinal muscle tenderness. Skin: General skin exam: no rashes or lesions noted Neuro: General: patient oriented x3, gait normal, tone normal, no meningeal signs and no focal motor deficits Cranial nerves: Yes Equal, round and reactive pupils present Gait exam (Neuro): Normal gait present Motor exam (neuro): 5/5 motor strength present throughout and Pronator motor function not present Coordination: [id number] test normal, [id number]-[id number] test normal, Romberg test negative and Normal rapid alternating movements of the distal upper extremity present (Neuro) Romberg Test: Negative Pupils: Normal pupillary reactivity/response: bilateral Course Course Course Narrative: 1014 -- On re-evaluation, patient reports headache is much improved after receiving Reglan, Benadryl, Toradol. At this time I feel comfortable discharging patient home with medication for migraine control. I do not feel as though labs or imaging is necessary at this time as patient's migraine feels like typical and has improved with medications. She is agreeable. Patient has remained stable throughout ED visit today. Discussed worrisome signs and symptoms and when to return to the ED. All questions answered at this time. Patient is agreeable with disposition and stable for discharge. Medications Administered Discontinued Medications Generic Name Dose Route Start Last Admin Trade Name Freq PRN Reason Stop Dose Admin Diphenhydramine HCl 50 mg 03/21/24 09:05 03/21/24 09:18 Diphenhydramine Hcl 50 Mg/Ml Vial IVPUSH 03/21/24 09:06 50 mg ONCE ONE Administration Ketorolac Tromethamine 15 mg 03/21/24 09:05 03/21/24 09:19 Ketorolac Tromethamine 15 Mg/Ml Vial IVPUSH 03/21/24 09:06 15 mg ONCE ONE Administration Metoclopramide HCl 10 mg 03/21/24 09:05 03/21/24 09:19 Metoclopramide Hcl 10 Mg/2 Ml Vial IVPUSH 03/21/24 09:06 10 mg ONCE ONE Administration Medical Decision Making Medical Decision Making MDM Narrative: 23 year old healthy female presents to the ED today for evaluation of intermittent headache x3 days. VSS. Afebrile. He is nontoxic appearing in no acute distress. On exam, PERRLA. Photophobia noted. Patient lying in exam room with lights dimmed. Exam is nonfocal. Ambulating with steady gait. Cerebellum intact. No nuchal rigidity or meningeal signs. No tenesmus or palpable temporal artery. No scalp tenderness. Differential diagnosis includes headache, migraine, tension headache. Lower suspicion for anemia, electrolyte abnormality, dehydration. Unlikely ICH, CVA/TIA/dissection, cerebellar stroke, giant cell arteritis, trigeminal neuralgia, meningitis, encephalitis, TBI. Plan for pain control + IVF and re-evaluation. Differential Diagnosis Differential Diagnoses: The differential diagnosis associated with the presentation includes As above Admission/Observation Not indicated External Record Review External record reviewed: Inpatient record, Office record, Outpatient record, Prior outpatient labs, Prior outpatient radiology, Primary care record and Outside ED record Prescription Management I considered prescription management with: Pain Medication Social Determinants Patient?s care significantly limited by Social Determinants of Health including: Other Social Determinant of Health Critical Care Time Critical Care Time Critical Care Time: No Discharge Plan Discharge Clinical Impression: Migraine Patient Disposition: Home, Self-Care Instructions: Migraine Headache (ED) Additional Instructions: You have been evaluated in the Emergency Department today for headache. Your evaluation did not show evidence of medical conditions requiring emergent intervention at this time, and your pain improved with medication in the ED. Your headache improved with medications in ED today. I want you to take the following 3 medications together every 6 hours as needed for headache, nausea or vomiting. ? - Reglan 10 mg - Benadryl 50 mg - Toradol 10mg -- do not take Toradol with other NSAIDs such as ibuprofen or Aleve as this can cause increased risk of GI bleeding. After you take these medications, lie down in a dark quiet room and try to fall asleep. ?These medications will make you sleepy, do not drive or work after taking these medications. Please follow up with your primary care physician within two days. Return to the Emergency Department if you experience worsening or uncontrolled pain, vision changes, recurrent vomiting, difficulty with normal activities, abnormal behavior, difficulty walking, numbness, weakness, or any other concerning symptoms. Prescriptions: New metoclopramide HCl [Reglan] 10 mg tablet 10 mg PO Q6H PRN (Reason: headache) Qty: 5 0RF Benadryl Allergy 50 mg tablet 50 mg PO Q8H PRN (Reason: headache) Qty: 5 0RF ketorolac 10 mg tablet 10 mg PO Q8H PRN (Reason: headache) Qty: 10 0RF No Action ketorolac 10 mg tablet 10 mg PO QID 4 Days Qty: 16 0RF ondansetron 4 mg tablet,disintegrating 4 mg PO Q6-8H PRN (Reason: nausea and vomiting) Qty: 14 0RF metoclopramide HCl [Reglan] 10 mg tablet 10 mg PO Q6H PRN (Reason: nausea and vomiting) Qty: 14 0RF doxycycline hyclate 100 mg tablet 100 mg PO BID Qty: 6 0RF metronidazole 500 mg tablet 500 mg PO Q8H 3 Days Qty: 9 0RF Stand Alone Forms: Work/School Release Print Language: [place]i
[2024-03-21] MEDS: diphenhydrAMINE HCL 50 MG/ML VIAL IVPUSH (09:18)
[2024-03-21] MEDS: Metoclopramide HCl 10 MG/2 ML VIAL IVPUSH (09:19)
[2024-03-21] MEDS: Ketorolac Tromethamine 15 MG/ML VIAL IVPUSH (09:19)
--- NOTE | 2024-03-21 09:32 | PC.NURSE ---
IV established, medicated per the MAR.
[2024-03-21 10:30] VITALS: BP 116/79; PULSE 83; RESP 16; TEMP 36.6; O2SAT 99
== END 2024-03-21 10:30 | disposition home or self-care (01) ==
PROVIDERS: Emergency Provider Emergency Medicine Emergency Medical Services
DX: G43.909 Migraine, unspecified, not intractable, without status migrainosus (principal); R11.2 Nausea with vomiting, unspecified
CPT/HCPCS: 96374; 96375; 99283; 99284; J1200; J1885; J2765

== ENCOUNTER 2024-05-21 09:00 | Emergency (ER) | payer BC, SELFPAY ==
[2024-05-21 09:08] VITALS: BP 107/70; PULSE 114; RESP 16; TEMP 36.6; O2SAT 100; BMI 17.0
--- NOTE | 2024-05-21 09:37 | ED.EPISTAXIS ---
History of Present Illness General Chief Complaint: Epistaxis Stated Complaint: Nose bleed Time Seen by Provider: 05/21/24 09:11 Source: patient Mode of arrival: ambulatory Limitations: no limitations History of Present Illness HPI Narrative: 24-year-old female with no significant past medical history presents to the ED today for evaluation of acute onset epistaxis which began at work prior to arrival in the ED today. She reports history of nosebleeds, specifically in the colder months. Reports at least 1 nosebleed every 1-2 weeks. She states the nare will typically bleed for 10-15 minutes before resolving with pressure. Today while at work, her left nare began profusely bleeding. Her right naris then began to bleed and she began to taste blood in the back of her throat. On arrival to ED, the bleeding from her right nares has ceased. She continues to bleed from her left nare. Denies any trauma or injury to the nose. Non anticoagulation. Denies aspirin or ibuprofen use. No known coagulation disorders. No other concerns at present. She reports following with her PCP for recurrent nose bleeds. She does not follow with an ENT. Related Data Previous Rx's ?Medication ?Instructions ?Recorded ketorolac 10 mg tablet 10 mg PO QID 4 days #16 tabs 10/02/21 metoclopramide HCl 10 mg tablet 10 mg PO Q6H PRN nausea and 10/13/21 (Reglan) vomiting #14 tabs ondansetron 4 mg disintegrating 4 mg PO Q6-8H PRN nausea and 10/13/21 tablet vomiting #14 tabs doxycycline hyclate 100 mg tablet 100 mg PO BID #6 tabs 10/02/22 metronidazole 500 mg tablet 500 mg PO Q8H 3 days #9 tabs 10/02/22 diphenhydramine HCl 50 mg tablet 50 mg PO Q8H PRN headache #5 tabs 03/21/24 (Benadryl Allergy) ketorolac 10 mg tablet 10 mg PO Q8H PRN headache #10 tabs 03/21/24 metoclopramide HCl 10 mg tablet 10 mg PO Q6H PRN headache #5 tabs 03/21/24 (Reglan) oxymetazoline 0.05 % nasal mist 2 spray intranasal Q12H PRN nose 05/21/24 bleed #60 mL Allergies Allergy/AdvReac Type Severity Reaction Status Date / Time amoxicillin Allergy Hives Verified 05/21/24 09:10 Penicillins Allergy Hives Verified 05/21/24 09:10 metoclopramide [From Reglan] AdvReac Anxiety Verified 05/21/24 09:10 Review of Systems Review of Systems: Constitutional: No fever, chills, fatigue, night sweats, weight changes ENT/Mouth: No ear pain, hearing loss, nasal congestion, sinus pain, rhinorrhea, sore throat, +epistaxis Eyes: No eye pain, swelling, redness, vision changes, discharge Cardio: No chest pain, palpitations, BOBBY, orthopnea, peripheral edema Pulm: No SOB, cough, sputum, wheezing, dyspnea, hemoptysis GI: No nausea, vomiting, hematemesis, abdominal pain, diarrhea, constipation, hematochezia, melena : No irregular bleeding, dysuria, frequency, urgency, hesitancy, hematuria, flank pain, urinary flow changes, urinary incontinence or retention MSK: No back pain, neck pain, joint pain, myalgias Skin: No lesions, rashes Neuro: No weakness, numbness, paresthesias, LOC, dizziness, headache Psych: No anxiety/panic, depression, SI/HI, AH/VH All other systems reviewed and are negative. [facility] Past Medical History Attestation statement: The following information was validated with the patient. Source: old records reviewed and nursing notes reviewed Social History Social History Alcohol intake: current Alcohol intake frequency: a few times a month Advance Directives: No Advance Directives Information Provided: Yes Do you have a plan to hurt others: No Plan Physical Exam Vital Signs: Vital Signs: Last Vital Signs Temp 97.9 F 05/21/24 09:08 Pulse 114 H 05/21/24 09:08 Resp 16 05/21/24 09:08 BP 107/70 05/21/24 09:08 Pulse Ox 100 05/21/24 09:08 O2 Del Method Room Air 05/21/24 09:08 BMI result Body Mass Index 17.0 Tachycardic General: Well appearing, in no acute distress. Skin: Warm, dry, intact. No rashes or lesions. Head: Normocephalic, atraumatic. EENT: Hearing is intact b/l. Conjunctiva clear. PERRLA. EOM intact. +Dried blood noted in vestibule of right Moy. Left Moy with moderate amount of bright red blood, no obvious site of bleeding. No visible clots. No septal hematoma. Moist mucous membranes. posterior oropharynx w/ scant blood Cardiac: Chest wall symmetric. RRR Lungs: Normal respiratory effort without accessory muscle use Back: No midline spinous or paraspinal tenderness. No step off deformity. Ext: Upper and lower extremities atraumatic, without tenderness, deformity, swelling or erythema Neuro: AOx3. Normal speech. Ambulating with steady gait. Psych: Appropriate mood and affect. Responds appropriately to questions. Course Course Course Narrative: I instilled 2 sprays of Afrin into each naris. Patient tolerated well. I then soaked rolled cotton with TXA and cocaine. I placed these into each nare and placed a clamp. she did report episode of nausea secondary to swallowing blood. no active vomiting. zofran given. I then removed the clamp/ cotton 30 minutes later to re-evaluate. no active bleeding noted. My attending dr. welch also evaluated patient at bedside. he did not appreciate any active bleeding. posterior oropharynx clear. no blood noted. no clots. I observed patient for 2 hours after epistaxis control. no further bleeding noted. patient feels well. joint decision to discharge home. affrin sent to pharmacy. educated on epistaxis control at home. ENT referral provided. Patient has remained stable throughout ED visit today. Discussed worrisome signs and symptoms and when to return to the ED. All questions answered at this time. Patient is agreeable with disposition and stable for discharge. Medications Administered Discontinued Medications Generic Name Dose Route Start Last Admin Trade Name Angelica PRN Reason Stop Dose Admin Cocaine HCl 4 ml 05/21/24 09:47 05/21/24 09:53 Cocaine Hcl 4 % 4 Ml Solution TOPICAL 05/21/24 09:48 4 ml ONCE ONE Administration Protocol Ondansetron HCl 4 mg 05/21/24 11:58 05/21/24 12:00 Ondansetron Odt 4 Mg Tab.Rapdis TRANSLINGU 05/21/24 11:59 4 mg ONCE ONE Administration Oxymetazoline HCl 2 spray 05/21/24 09:47 05/21/24 09:53 Oxymetazoline Hcl 0.05 % Nasal 15 Ml [place] NOSTRIL-B 05/21/24 09:48 2 spray ONCE ONE Administration Oxymetazoline HCl 2 spray 05/21/24 09:47 05/21/24 09:53 Oxymetazoline Hcl 0.05 % Nasal 15 Ml [place] NOSTRIL-B 05/21/24 09:48 2 spray ONCE ONE Administration Tranexamic Acid 500 mg 05/21/24 09:47 05/21/24 09:53 Tranexamic Acid 1,000 Mg/10 Ml Vial INTRANASAL 05/21/24 09:48 500 mg ONCE ONE Administration Medical Decision Making Medical Decision Making MDM Narrative: 24-year-old female with no significant past medical history presents to the ED today for evaluation of acute onset epistaxis which began at work prior to arrival in the ED today. Tachycardic. Vitals are otherwise WNL. She is nontoxic-appearing and in no acute distress. Sitting comfortably on the exam bed with gauze held to her nose. Exam significant for dried blood noted to vestibule of right Moy. Left Moy with moderate amount of bright red blood, no obvious site of bleeding. No visible clots. No septal hematoma. Moist mucous membranes. posterior oropharynx w/ scant blood. Differential diagnosis includes epistaxis, trauma. low suspicion for liver disease, coag disorders Plan for epistaxis control, re-evaluation. No hemorrhage or concern for acute blood loss. not on thinners. no indication for blood work. No trauma/ injury. no indication for ct scan/ imaging. Differential Diagnosis Differential Diagnoses: The differential diagnosis associated with the presentation includes As above Admission/Observation Not indicated External Record Review External record reviewed: Inpatient record Prescription Management I considered prescription management with: Other (affrin) Chronic Conditions Patient?s care impacted by: Other (Epistaxis) Social Determinants Patient?s care significantly limited by Social Determinants of Health including: Other Social Determinant of Health Procedures Epistaxis Control Time Out Performed: Yes Nostril: Yes bilateral Nose prepped with: Yes cocaine 4% and Yes oxymetazoline Direct inspection: Yes unable to visualize Direct inspection method: Yes nasal speculum and Yes otoscope Clots removed by: Yes blowing nose Epistaxis treatment: Yes TXA soaked gauze Results of treatment: Yes bleeding controlled Complications: Yes none Critical Care Time Critical Care Time Critical Care Time: No Discharge Plan Discharge Clinical Impression: Epistaxis Patient Disposition: Home, Self-Care Instructions: Nosebleed (ED) Additional Instructions: You were evaluated in the ED today for nosebleed. Avoid hot beverages for the next 2-3 days as this can increase chance of re-bleeding. If there is recurrence of significant bleeding at home: I recommend blowing your nose to remove the clots before giving yourself several sprays of the oxymetazoline (afrin) spray that I have sent to your pharmacy. After this, apply nasal clamp on your nose again for at least 20 minutes. If after 20 minutes you are no longer bleeding, you do not need to come to the ED. Follow up with ENT (ear, nose, throat) in 2-3 days. You have been provided with a referral. Call them to make an appointment. They will not call you. Return with new or worsening symptoms. In the case of an emergency call 911. Prescriptions: New oxymetazoline 0.05 % mist 2 spray intranasal Q12H PRN (Reason: nose bleed) Qty: 60 0RF No Action ketorolac 10 mg tablet 10 mg PO QID 4 Days Qty: 16 0RF ondansetron 4 mg tablet,disintegrating 4 mg PO Q6-8H PRN (Reason: nausea and vomiting) Qty: 14 0RF metoclopramide HCl [Reglan] 10 mg tablet 10 mg PO Q6H PRN (Reason: nausea and vomiting) Qty: 14 0RF metoclopramide HCl [Reglan] 10 mg tablet 10 mg PO Q6H PRN (Reason: headache) Qty: 5 0RF Benadryl Allergy 50 mg tablet 50 mg PO Q8H PRN (Reason: headache) Qty: 5 0RF ketorolac 10 mg tablet 10 mg PO Q8H PRN (Reason: headache) Qty: 10 0RF doxycycline hyclate 100 mg tablet 100 mg PO BID Qty: 6 0RF metronidazole 500 mg tablet 500 mg PO Q8H 3 Days Qty: 9 0RF Referrals: [facility] [place] [facility] [place]Provider Group] [facility] [place] [facility] [place] [facility] [Provider Group] [facility] [place] [facility] [place] [facility],Faraz [Provider Group] Joselin Nunn MD [Physician] - Emerita Kelly PA [Physician Mold Maker Helper] - Stand Alone Forms: Work/School Release Print Language: [place]
[2024-05-21] MEDS: Tranexamic Acid 1,000 MG/10 ML VIAL 500 MG INTRANASAL (09:53)
[2024-05-21] MEDS: Cocaine HCl 4 % 4 ML SOLUTION TOPICAL (09:53)
[2024-05-21] MEDS: Oxymetazoline HCl 0.05 % Nasal 15 ML SPRAY 2 SPRAY NOSTRIL-B ×2 (09:53)
--- NOTE | 2024-05-21 09:54 | PC.NURSE ---
provider to administer medications
[2024-05-21] MEDS: Ondansetron ODT 4 MG TAB.RAPDIS TRANSLINGU (12:00)
--- NOTE | 2024-05-21 12:00 | PC.NURSE ---
pt medicated for nausea per order
[2024-05-21 13:04] VITALS: BP 113/71; PULSE 56; RESP 18; TEMP 36.6; O2SAT 100
== END 2024-05-21 13:10 | disposition home or self-care (01) ==
PROVIDERS: Emergency Provider Emergency Medicine
DX: R04.0 Epistaxis (principal)
CPT/HCPCS: 30901; 99282; 99283; 99284; C9143

== ENCOUNTER 2024-10-15 10:29 | Outpatient (AMB) | payer BC, SELFPAY ==
--- NOTE | 2024-10-15 10:35 | A.OFFPC_ITS ---
Vital Signs 10/15/24 10:37 Height 5 ft 7.32 in Weight 109 lb 4 oz BMI 16.9 BP 110/68 Blood Pressure Location Lt brachial Position Sitting Pulse 97 Pulse Source Pulse Oximeter Temp 97.1 F Temp Source Temporal Artery Scan Pulse Oximetry (%) 98 Oxygen Delivery Method Room Air Intake Visit Reasons: Establish care Intake Note: Patient is a new patient here to establish care for Anxiety, Bipolar 2 disorder, Headaches. Transferring care from [facility]. Medical records have been requested and have not received. Rig Builder Required: No Set Up Operator: Not Required per policy Accompanied by: Self / Same As Patient Allergies amoxicillin Allergy (Verified 10/15/24 10:48) Hives Penicillins Allergy (Verified 10/15/24 10:48) Hives metoclopramide [From Reglan] Adverse Reaction (Verified 10/15/24 10:48) Anxiety Medication List - Last Reconciled 10/15/24 by Milagro Sanchez PA-C diphenhydramine HCl (Benadryl Allergy) 50 mg PO Q8H PRN ondansetron 4 mg PO Q6-8H PRN oxymetazoline 0.05% 2 sprays intranasal Q12H PRN Tobacco use date assessed: 10/15/24 Dental Screening Dental Screen Date: 10/15/24 Did you have a dental visit in the last 12 months?: No Did you have a dental problem in the last 6 months where you did not have access to dental care?: No Was dental information given to patient?: Patient declined HPI Establish care HPI Details 24 year old female coming to the office for the first time. She reports a severe, persistent cough starting last Monday, characterized by alternating dry and productive phases. The cough is frequent, causing significant sleep disruption and partially alleviated by hot showers. The cough does not produce blood. Sinus pressure is noted, particularly severe when bending forward, along with nasal congestion. She denies fever. The patient experiences severe dysmenorrhea on day one of her menstrual cycle, causing disability and insufficiently relieved by ibuprofen or heat, with regular cycles and heavy flow. The patient has a significant history of headaches, diagnosed as migraines, that occur sporadically and have required ER management without identifiable triggers. Her family history supports a possible genetic predisposition to migraines. 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 1. Little interest or pleasure in doing things: not at all 2. Feeling down, depressed, or hopeless: not at all 3. Trouble falling or staying asleep, or sleeping too much: several days 4. Feeling tired or having little energy: several days 5. Poor appetite or overeating: several days 6. Feeling bad about yourself - or that you are a failure or have let yourself or your family down: not at all 7. Trouble concentrating on things, such as reading the newspaper or watching television: not at all 8. Moving or speaking so slowly that other people could have noticed. Or the opposite - being so fidgety or restless that you have been moving around a lot more than usual: not at all 9. Thoughts that you would be better off or of hurting yourself in some way: not at all Total score: 3 Depression Screening Interpretation: Negative Depression Screening Done: Yes Source: Developed by Drs. Haroldo Peralta, Eleanor Oliva, Patrick Hernandez and colleagues, with an educational katie from [employer]. Thrive Questionnaire Date Thrive assessed: 10/15/24 I am a: Patient What is your living situation today?: I have a steady place to live Within the past 12 months, did the food you bought not last and you didn't have the money to get more?: Never true Within the past 12 months, did you worry whether your food would run out before you got money to buy more?: Never true Do you have trouble paying for medicines?: No Do you have trouble getting transportation to medical appointments?: No Do you have trouble paying your heating and electricity bill?: No Do you have trouble taking care of your child, family member or friend?: No Do you have trouble with day-to-day activities such as bathing, preparing meals, shopping, managing finances, etc.?: No Are you currently unemployed and looking for a job?: No Are you interested in more education?: No Please select the resources that you would like help with: None Currently or been in a relationship where the following occur: No concerns reported THRIVE Score: 0 AUDIT C Alcohol Use Questionnaire (AUDIT-C) 1. How often do you have a drink containing alcohol?: 2-4 times a month 2. How many drinks containing alcohol do you have on a typical day when you are drinking?: 3 or 4 3. How often do you have six or more drinks on one occasion?: Less than monthly Total Score: 4 ALESSANDRA-7 AMB Questionnaire ALESSANDRA-7 Date ALESSANDRA - 7 assessed: 10/15/24 Feeling nervous, anxious, or on edge: 1 = Several days Not being able to stop or control worryin = Not at all Worrying too much about different things: 0 = Not at all Trouble relaxin = Not at all Being so restless that it is hard to sit still: 0 = Not at all Becoming easily annoyed or irritable: 1 = Several days Feeling afraid as if something awful might happen: 0 = Not at all Total ALESSANDRA-7 score (0-4 normal; 5-9 mild; 10-14 moderate; 15-21 severe): 2 Source: Developed by Drs. Haroldo Peralta, Eleanor Oliva, Patrick Hernandez and colleagues, with an educational katie from [employer]. ALESSANDRA-7 Assessment Billing ALESSANDRA-7 Assessment Tool: ALESSANDRA-7 Assessment 58484 Review of Systems Const Denies body aches, Denies chills, Denies fever(s), Reports headache(s) and Denies poor appetite Eyes Reports no additional complaints ENT Details: sinus pressure Denies dysphagia, Denies dizziness, Reports headache(s), Reports nasal congestion, Reports nasal discharge, Denies odynophagia and Reports sinus pain Card Denies chest pain, Denies syncope, Denies edema, Denies irregular heart rhythm, Denies lightheadedness and Denies dyspnea Resp Reports cough, Denies hemoptysis and Denies dyspnea GI Denies abdominal pain, Denies constipation, Denies dysphagia, Denies diarrhea, Denies nausea, Denies odynophagia and Denies vomiting Reports no additional complaints Musc Reports no additional complaints and Denies abnormal gait Skin/Breast Reports system reviewed and no additional complaints, except as documented Neuro Denies abnormal gait, Denies dizziness, Denies syncope and Reports headache(s) Psych Reports no additional complaints Physical exam (Primary Care) Vital Signs: Last Vital Signs Temp 97.1 F 10/15/24 10:37 Pulse 97 10/15/24 10:37 BP 110/68 10/15/24 10:37 Pulse Ox 98 10/15/24 10:37 Oxygen Delivery Method Room Air 10/15/24 10:37 BMI result Body Mass Index 16.9 Tobacco/Smoking Status: Tobacco use Status Tobacco use date assessed 10/15/24 10/15/24 10:41 Patient Tobacco Use Status Never used Tobacco 10/15/24 10:41 e-Cigarette/Vaping Use Never Used 10/15/24 10:41 PHQ-9: PHQ-9 Score PHQ-9: Total score 3 10/15/24 10:41 Depression Screening Interpretation: Negative Thrive Assessment: Date of Thrive Assessment Date Thrive assessed 10/15/24 10/15/24 10:41 Currently or been in a relationship where the following occur: No concerns reported Const General: cooperative, healthy appearing, comfortable and no acute distress Orientation/consciousness: patient oriented x3 HENAR Head: Yes normocephalic Ears: hearing grossly normal bilaterally General nose exam: Normal external nose present Eyes General: appearance normal, both eyes and all related structures Conjunctivae: conjunctivae normal Neck Neck: Yes full ROM and Yes no lymphadenopathy Resp Effort & Inspection: normal respiratory effort Auscultation: clear to auscultation bilaterally, no crackles, no rales, no rhonchi and no wheezes Cardio Rate: regular rate Rhythm: regular rhythm Skin General skin exam: no rashes or lesions noted Neuro General: patient oriented x3 Gait exam (Neuro): Normal gait present Extrem General: Yes normal to inspection, Yes full ROM and No edema Psych Affect: normal affect Attitude: cooperative Insight: Good insight present (Psych) Judgement: Good judgement present (Psych) Coding Level of Care Code New Pt Level 4 (62575) Diagnoses Cough R05.9 Anxiety F41.9 Bipolar II disorder F31.81 Headache R51.9 Dysmenorrhea N94.6 Additional Codes ALESSANDRA-7 Assessment Billing - ALESSANDRA-7 Assessment Tool: ALESSANDRA-7 Assessment 48498 ([id number]) Assessment & Plan Assessment & Plan (1) Cough: Code(s): R05.9 - Cough, unspecified Category: Medical Plan: Patient reporting cough has been ongoing for about 1 week alongside sinus pressure and pain. She states last night she was kept up all night long with coughing. The cough is occasionally productive cough and has been worsening over the last week. Plan to obtain chest x-ray as well as viral testing for further evaluation. Consider antibiotic therapy. (2) Anxiety: Code(s): F41.9 - Anxiety disorder, unspecified Category: Medical Plan: Patient feels her anxiety is well managed at this time without the use of me dication. She is looking for a referral to a counselor and referral was placed to [facility] today. She has previously following with a counselor in the past and found this beneficial (3) Bipolar II disorder: Code(s): F31.81 - Bipolar II disorder Category: Medical Plan: Patient was previously medicated for bipolar 2 disorder and follow up with a therapist in the past. She is not interested in medication management at this time and feels she is managing well without the use of medication. Referral was placed to counseling (4) Headache: Code(s): R51.9 - Headache, unspecified Category: Medical Plan: Patient reporting symptoms consistent with migraine headache. She was seen several times in the ED over the past several years for migraine headache and given a migraine cocktail with good improvement. Plan to use sumatriptan as needed and advised patient to reach out if symptoms worsen or persist. (5) Dysmenorrhea: Code(s): N94.6 - Dysmenorrhea, unspecified Category: Medical Plan: Patient reporting painful periods for the 1st few days of her cycle referral was placed to gynecology today. Plan I ordered diagnostic tests including a chest x-ray and nasal swab to determine the underlying cause of the patient's respiratory symptoms. Azithromycin will be prescribed if the chest x-ray suggests a sinus infection without pneumonia. I advised against prolonged use of decongestants, and saline nasal rinses were recommended. Referral to a hat brim and crown laminating operator is made for dysmenorrhea evaluation. Sumatriptan is provided for acute migraine management, with a prescription sent to the patient's pharmacy. Referral to [facility] for mental health support was arranged. A follow-up in three months for comprehensive evaluation is scheduled. This note was constructed using voice recognition software. While every effort has been made to ensure accuracy and bead supervisor, still areas may have been included sometimes these areas may affect the content or meeting of the given symptoms. Total time spent caring for the patient today was 30 minutes. This includes time spent before the visit reviewing the chart, time spent during the visit, and time spent after the visit and documentation. Patient was informed and verbally consented to the use of an ambient scribe for clinic note documentation during this visit. Orders: Orders XR chest 2V Today R05.9 - Cough, unspecified TSH reflex Free T4 Today F41.9 - Anxiety disorder, unspecified, Z00.00 - Encounter for general adult medical examination without abnormal findings Free T4 (Free Thyroxine) Today F41.9 - Anxiety disorder, unspecified, Z00.00 - Encounter for general adult medical examination without abnormal findings Comprehensive Met. Panel Today R51.9 - Headache, unspecified, Z00.00 - Encounter for general adult medical examination without abnormal findings SARS-CoV2/FLU/RSV Today R09.89 - Other specified symptoms and signs involving the circulatory and respiratory systems Complete Blood Count Auto Diff Today R51.9 - Headache, unspecified, Z00.00 - Encounter for general adult medical examination without abnormal findings Vitamin B12 and Folate Today R51.9 - Headache, unspecified, Z13.21 - Encounter for screening for nutritional disorder Vitamin D 25-OH Total Today R51.9 - Headache, unspecified, Z00.00 - Encounter for general adult medical examination without abnormal findings Referrals Counseling Referral F31.81 - Bipolar II disorder, F41.9 - Anxiety disorder, unspecified MOLDING LINE ASSISTANT Referral N94.6 - Dysmenorrhea, unspecified, Z12.4 - Encounter for screening for malignant neoplasm of cervix Medications: New sumatriptan succinate take 1 tab at onset of headache; if no relief may repeat 1 tab after at least 2 hrs; max = 4 tabs/24 hr PO 30 tabs 0RF Discontinued ketorolac Discontinued Reason: Order 10 mg PO QID 4 days 16 tabs 0RF metoclopramide HCl (Reglan) Discontinued Reason: Patient no longer taking 10 mg PO Q6H PRN 14 tabs 0RF nausea and vomiting ondansetron Discontinued Reason: Patient no longer taking 4 mg PO Q6-8H PRN 14 tabs 0RF nausea and vomiting doxycycline hyclate Discontinued Reason: Patient Completed Course 100 mg PO BID 6 tabs 0RF ketorolac Discontinued Reason: Patient Completed Course 10 mg PO Q8H PRN 10 tabs 0RF headache metoclopramide HCl (Reglan) Discontinued Reason: Patient no longer taking 10 mg PO Q6H PRN 5 tabs 0RF headache metronidazole Discontinued Reason: Patient Completed Course 500 mg PO Q8H 3 days 9 tabs 0RF diphenhydramine HCl (Benadryl Allergy) Discontinued Reason: Patient no longer taking 50 mg PO Q8H PRN 5 tabs 0RF headache oxymetazoline 0.05% Discontinued Reason: Patient no longer taking 2 sprays intranasal Q12H PRN 60 mL 0RF nose bleed
[2024-10-15 10:37] VITALS: BP 110/68; PULSE 97; TEMP 36.2; O2SAT 98; BMI 16.9
--- OUTSIDE RECORDS SUMMARY | 2024-10-15 11:15 | XMS_ITS | Encounter Summary ---
Author Organization [facility] Address [address] [place] [id number] Phone Care Team Providers Care Propellant Charge Zone Assembler Name Role Phone Unavailable Primary Care Provider Unavailabl e Encounter Details Date Type Department Care Team (Late st Contact Info) Description 05/26/2015 Documentation [facility] Family Medicine [facility] [place] [address] Family Medicine, Physician [facility] [place] [address] Social History Tobacco Use Types Packs/Day Years Used Date Smoking Tobacco: Never Assessed Comments Unknown Sex and Gender Information Value Date Recorded Sex Assigned at Not on file Legal Sex Female 5:20 PM EDT Gender Identity Not on file Sexual Orientation Not on file documented as of this encounter Plan of Treatment Not on file documented as of this encounter Visit Diagnoses Not on filedocumented in this encounter
== END 2024-10-15 11:14 | disposition home or self-care (01) ==
LOC: HO.HMCH 10:30
DX: R05.9 Cough, unspecified (principal); F41.9 Anxiety disorder, unspecified; F31.81 Bipolar II disorder; R51.9 Headache, unspecified; N94.6 Dysmenorrhea, unspecified

== ENCOUNTER → 2024-10-15 10:29 | Outpatient (BNVA) | payer BC, SELFPAY | DX: R05.3 Chronic cough (principal); F41.9 Anxiety disorder, unspecified; F31.81 Bipolar II disorder; N94.6 Dysmenorrhea, unspecified; G43.909 Migraine, unspecified, not intractable, without status migrainosus | CPT/HCPCS: 96127 ==

== ENCOUNTER 2024-10-15 11:17 | Emergency (ER) | payer BC, SELFPAY ==
--- NOTE | ~2024-10-15 | XR_ITS ---
EXAMINATION: XR CHEST CLINICAL INFORMATION: cough 1 week COMPARISON: None available. TECHNIQUE: 2 views of the chest were obtained. FINDINGS: No consolidation, pleural effusion or pneumothorax. Hyperinflated lungs. Cardiomediastinal silhouette size is small. S-shaped curvature of the thoracolumbar spine. XR/XR chest 2V IMPRESSION: No acute airspace disease. Scoliosis, thoracolumbar spine. Electronically signed by: Efren Carey MD 10/15/2024 11:56 AM EDT
[2024-10-15 11:23] VITALS: BP 128/89; PULSE 106; RESP 16; TEMP 36.9; O2SAT 100; BMI 17.1
--- NOTE | 2024-10-15 11:26 | ED_ITS ---
HPI - General Adult General Chief complaint: General Medical Stated complaint: Sent for xray Time Seen by Provider: 10/15/24 11:25 Source: patient, RN notes reviewed and old records reviewed Mode of arrival: ambulatory Limitations: no limitations History of Present Illness ED Provider: Dallas YAN narrative: Patient is a 24-year-old female presenting to the emergency department with comp laint of cough and shortness of breath for the past week. Referred to the ED by PCP for chest x-ray and viral swabs. Denies fevers. Denies hemoptysis. Reports associated nasal congestion. Related Data Previous Rx's ?Medication ?Instructions ?Recorded sumatriptan succinate 25 mg tablet See Rx Instructions PO .COMPLEX 10/15/24 #30 tabs Allergies Allergy/AdvReac Type Severity Reaction Status Date / Time amoxicillin Allergy Hives Verified 10/15/24 11:24 Penicillins Allergy Hives Verified 10/15/24 11:24 metoclopramide [From Reglan] AdvReac Anxiety Verified 10/15/24 11:24 Review of Systems Review of Systems: as per HPI Yes all other systems are reviewed and are negative Constitutional: Constitutional: Reports as per HPI [facility] Past Medical History Medical History TBI (traumatic brain injury) (~11/03/21) Surgical History History of surgery History of neck surgery Family History Family History Other Mental health disorder Substance use disorder Social History Social History Housing: House Alcohol intake: current Alcohol intake frequency: holidays/special occasions only Patient Tobacco Use Status: Never used Tobacco Smoked in Last 30 Days: Yes e-Cigarette/Vaping Use: Currently Using Second Hand Smoke Exposure: No Use of substances other than those prescribed or required for medical reasons: Yes Substance Use Type: Marijuana Advance Directives: No Advance Directives Information Provided: Yes Do you have a plan to hurt others: No Plan service: No Current occupational status: employed 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 Blood pressure normal. Heart rate normal. Respiratory rate normal. Temperature normal. Oxygen saturation normal. Const General: cooperative, healthy appearing and no acute distress Orientation/consciousness: oriented to person, oriented to place, oriented to time and patient oriented x3 Limitations: no limitations HENMT Head: Yes normocephalic and Yes atraumatic Ears: external ears normal General nose exam: Normal external nose present Face and sinus: Yes face symmetric Mouth: oropharynx normal and moist mucous membranes Throat: Yes uvula midline Eyes Pupils: Equal, round and reactive pupils present Neck Neck: Yes normal visual inspection and Yes supple Resp Effort & Inspection: normal respiratory effort and able to speak in complete sentences Auscultation: clear to auscultation bilaterally Cardio Rate: regular rate Rhythm: regular rhythm Heart sounds: S1 normal heart sound present and S2 normal heart sound present GI Palpation (GI): Soft to palpation and nontender Auscultation: normoactive bowel sounds General: Yes no CVA tenderness Back/Spine/Pelvis Back: no CVA tenderness Skin General skin exam: elasticity normal and turgor normal Neuro General: oriented to person, oriented to place, oriented to time, patient oriented x3, moves all extremities, no focal motor deficits and CN's II-XI intact bilaterally Cranial nerves: Yes Equal, round and reactive pupils present Cognition (Neuro): normal cognition Extrem General: Yes full ROM, Yes no pedal edema and Yes no calf tenderness Psych Mental Status: mental status grossly normal Affect: normal affect Thought process: Normal thought process present Medical Decision Making Medical Decision Making MDM Narrative: Patient is a 24-year-old female presenting to the emergency department with complaint of cough and shortness of breath for the past week. On exam patient is awake, A+Ox3, VS WNL, afebrile, normal neurological exam without focal deficits, physical exam findings as above. Given reported symptoms and physical exam findings, initial differential includes but is not limited to viral illness, COVID, flu, RSV, bronchitis, pneumonia. Viral panel negative. X-ray chest notable for no evidence of pneumonia. My interpretation is in agreement with the radiologist's interpretation. Physical exam unremarkable, patient is stable for discharge. Advised use of [id number] Delsym and nasal saline spray. Return precautions discussed. Follow up with PCP as needed. Patient verbalized understanding of and agreement with plan. Differential Diagnosis Differential Diagnoses: The differential diagnosis associated with the presentation includes As per [facility] Admission/Observation Consideration of admission/observation: Escalation of care including admission/observation considered Patient would have been admitted to the hospital had their work up had any findings where hospital admission was appropriate and their clinical presentat ion warranted hospital admission. Lab Data [facility] Lab Attestation statement: I reviewed the patient's lab results. as per [facility] Labs: Lab Results 10/15/24 Range/Units 11:32 Influenza Type A (PCR) NEGATIVE (Negative) Influenza Type B (PCR) NEGATIVE (Negative) RSV RNA Qual (PCR) NEGATIVE (Negative) SARS-CoV-2 RNA (RT-PCR) NEGATIVE (Negative) Independent Interpretation I performed an independent interpretation of an: Plain X-Ray Interpretation: No evidence of pneumonia on Chest x-ray Radiology Impression Discussion of test interpretation with radiology: I have reviewed the radiologist's reading. Radiologist Impression: CLINICAL INFORMATION: cough 1 week COMPARISON: None available. TECHNIQUE: 2 views of the chest were obtained. FINDINGS: No consolidation, pleural effusion or pneumothorax. Hyperinflated lungs. Cardiomediastinal silhouette size is small. S-shaped curvature of the thoracolumbar spine. XR/XR chest 2V IMPRESSION: No acute airspace disease. Scoliosis, thoracolumbar spine. External Record Review External record reviewed: Inpatient record, Office record and Outpatient record Discharge Plan Discharge Clinical Impression: Viral URI Patient Disposition: Home, Self-Care Instructions: Upper Respiratory Infection (DC), Viral Syndrome (ED) Additional Instructions: You were evaluated in the emergency department today for shortness of breath and cough. Your Covid, flu, RSV, and strep tests were all negative. Your chest x- ray did not show evidence of pneumonia. Your symptoms are likely related to a viral illness which will resolve on its own with time and rest. You should ensure adequate fluid intake, and can use Tylenol 650 mg or ibuprofen 600 mg every 6 hours as needed for fever or discomfort. We also recommend using over the counter nasal saline spray to thin your mucous. Please follow-up with your primary care provider this week. Return to the emergency department if you develop chest pain, worsening shortness of breath, difficulty swallowing, fever 100.4? F or greater or any other concerning symptoms. Prescriptions: No Action sumatriptan succinate 25 mg tablet See Rx Instructions PO .COMPLEX Qty: 30 0RF Rx Instructions: take 1 tab at onset of headache; if no relief may repeat 1 tab after at least 2 hrs; max = 4 tabs/24 hr PO Stand Alone Forms: Work/School Release Interventions: ED Discharge Assessment Last Done: 10/15/24 12:35 Discharge Date/Time: 10/15/24 12:36 Print Language: Swiss
[2024-10-15 12:00] VITALS: BP 122/74; PULSE 97; RESP 16; TEMP 36.8; O2SAT 100
[2024-10-15 12:23] LABS: Influenza A PCR NEGATIVE (Negative); Influenza B PCR NEGATIVE (Negative); Resp Syncy Virus RNA Qual PCR NEGATIVE (Negative); SARS COV2 PCR INHOUSE NEGATIVE (Negative)
[2024-10-15 12:35] VITALS: BP 122/74; PULSE 97; RESP 16; TEMP 36.8; O2SAT 100
== END 2024-10-15 12:36 | disposition home or self-care (01) ==
PROVIDERS: Registered Nurse Emergency; Emergency Provider Emergency Medicine
DX: J06.9 Acute upper respiratory infection, unspecified (principal); R05.9 Cough, unspecified; Z03.818 Encounter for observation for suspected exposure to other biological agents ruled out
CPT/HCPCS: 0241U; 71046; 99283; 99284

== ENCOUNTER → 2024-10-15 11:27 | Outpatient (BNV) | payer BC, SELFPAY | PROVIDERS: Emergency Provider Emergency Medicine; Visit Provider Radiology Diagnostic Radiology | DX: R05.9 Cough, unspecified (principal) | CPT/HCPCS: 71046 ==

== ENCOUNTER 2025-01-15 08:54 | Outpatient (AMB) | payer BC, SELFPAY ==
[2025-01-15 08:57] VITALS: BP 122/74; PULSE 88; TEMP 36.2; O2SAT 98; BMI 18.3
--- NOTE | 2025-01-15 08:57 | A.OFFPC_ITS ---
Vital Signs 01/15/25 08:57 Height 5 ft 7 in Weight 117 lb 2 oz BMI 18.3 BP 122/74 Blood Pressure Location Lt brachial Position Sitting Pulse 88 Pulse Source Pulse Oximeter Temp 97.1 F Temp Source Temporal Artery Scan Pulse Oximetry (%) 98 Oxygen Delivery Method Room Air Intake Visit Reasons: Annual Exam Allergies amoxicillin Allergy (Verified 01/15/25 09:01) Hives Penicillins Allergy (Verified 01/15/25 09:01) Hives metoclopramide (From Reglan) Adverse Reaction (Verified 01/15/25 09:01) Anxiety Medication List - Last Reconciled 01/15/25 by Milagro Sanchez PA-C sumatriptan succinate take 1 tab at onset of headache; if no relief may repeat 1 tab after at least 2 hrs; max = 4 tabs/24 hr PO Tobacco use date assessed: 01/15/25 Dental Screening Dental Screen Date: 01/15/25 Did you have a dental visit in the last 12 months?: No Did you have a dental problem in the last 6 months where you did not have access to dental care?: No Was dental information given to patient?: Patient declined HPI Annual Exam HPI Details 24-year-old female with past medical his tory of bipolar disorder, anxiety and headaches last seen 09/2024 coming in for annual exam. Presenting for a follow-up on migraine headaches and to discuss menstrual issues. Migraine headaches have improved with medication prescribed previously, which the patient uses at the onset of symptoms, preventing full-blown migraines. The patient reports infrequent use of the medication, primarily after nights out, and has not required new medications or experienced new allergies. Anxiety and depression have been stable, with the patient actively seeking a counselor for ongoing management. Dysmenorrhea is severe, causing the patient to be bedridden for the first two days of menstruation, accompanied by nausea and vomiting. The patient has been advised to consider hormonal treatments to manage menstrual symptoms, with a referral to gynecology pending. Heart palpitations occur occasionally, particularly after vaping or caffeine intake, with no consistent pattern warranting further investigation at this time. 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 Vaccinations: TDaP due [facility] Medical History TBI (traumatic brain injury) (~11/03/21) Surgical History History of surgery History of neck surgery Family History Other Mental health disorder Substance use disorder Social History Housing: House Alcohol intake: current Alcohol intake frequency: holidays/special occasions only Patient Tobacco Use Status: Never used Tobacco e-Cigarette/Vaping Use: Currently Using Second Hand Smoke Exposure: No Substance Use Type: Marijuana service: No Current occupational status: employed 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 1. Little interest or pleasure in doing things: not at all 2. Feeling down, depressed, or hopeless: not at all 3. Trouble falling or staying asleep, or sleeping too much: several days 4. Feeling tired or having little energy: several days 5. Poor appetite or overeating: several days 6. Feeling bad about yourself - or that you are a failure or have let yourself or your family down: not at all 7. Trouble concentrating on things, such as reading the newspaper or watching television: not at all 8. Moving or speaking so slowly that other people could have noticed. Or the opposite - being so fidgety or restless that you have been moving around a lot more than usual: not at all 9. Thoughts that you would be better off or of hurting yourself in some way: not at all Total score: 3 Depression Screening Interpretation: Negative Depression Screening Done: Yes Source: Developed by Drs. Haroldo Peralta, Eleanor Oliva, Patrick Hernandez and colleagues, with an educational katie from [employer]. Thrive Questionnaire Date Thrive assessed: 10/15/24 I am a: Patient What is your living situation today?: I have a steady place to live Within the past 12 months, did the food you bought not last and you didn't have the money to get more?: Never true Within the past 12 months, did you worry whether your food would run out before you got money to buy more?: Never true Do you have trouble paying for medicines?: No Do you have trouble getting transportation to medical appointments?: No Do you have trouble paying your heating and electricity bill?: No Do you have trouble taking care of your child, family member or friend?: No Do you have trouble with day-to-day activities such as bathing, preparing meals, shopping, managing finances, etc.?: No Are you currently unemployed and looking for a job?: No Are you interested in more education?: No Please select the resources that you would like help with: None Currently or been in a relationship where the following occur: No concerns reported THRIVE Score: 0 AUDIT C Alcohol Use Questionnaire (AUDIT-C) 1. How often do you have a drink containing alcohol?: 2-4 times a month 2. How many drinks containing alcohol do you have on a typical day when you are drinking?: 1 or 2 3. How often do you have six or more drinks on one occasion?: Never Total Score: 2 ALESSANDRA-7 AMB Questionnaire ALESSANDRA-7 Date ALESSANDRA - 7 assessed: 10/15/24 Feeling nervous, anxious, or on edge: 1 = Several days Not being able to stop or control worryin = Not at all Worrying too much about different things: 0 = Not at all Trouble relaxin = Not at all Being so restless that it is hard to sit still: 0 = Not at all Becoming easily annoyed or irritable: 1 = Several days Feeling afraid as if something awful might happen: 0 = Not at all Total ALESSANDRA-7 score (0-4 normal; 5-9 mild; 10-14 moderate; 15-21 severe): 2 Source: Developed by Drs. Haroldo Peralta, Eleanor Oliva, Patrick Hernandez and colleagues, with an educational katie from [employer]. Review of Systems Const Denies body aches, Denies fatigue, Denies fever(s), Denies frequent falls, Denies headache(s) and Denies weakness Eyes Reports no additional complaints and Denies change in vision ENT Denies dysphagia, Denies dizziness, Denies facial pain, Denies headache(s) and Denies odynophagia Card Denies chest pain, Denies syncope, Denies irregular heart rhythm, Denies leg edema, Denies lightheadedness and Denies dyspnea Resp Denies cough and Denies dyspnea GI Denies abdominal pain, Denies constipation, Denies dysphagia, Denies dyspepsia, Denies diarrhea, Reports nausea (w/ menses), Denies odynophagia and Reports vomiting (w/ menses) Denies urinary frequency, Denies dysuria, Denies urinary hesitancy and Denies urinary urgency Musc Denies back pain and Denies myalgias Skin/Breast Reports system reviewed and no additional complaints, except as documented Neuro Denies dizziness, Denies syncope, Denies frequent falls, Denies headache(s) and Denies weakness Psych Reports no additional complaints Endo Denies fatigue Physical exam (Primary Care) Vital Signs: Last Vital Signs Temp 97.1 F 01/15/25 08:57 Pulse 88 01/15/25 08:57 BP 122/74 01/15/25 08:57 Pulse Ox 98 01/15/25 08:57 Oxygen Delivery Method Room Air 01/15/25 08:57 BMI result Body Mass Index 18.3 Tobacco/Smoking Status: Tobacco use Status Tobacco use date assessed 01/15/25 01/15/25 09:00 Patient Tobacco Use Status Never used Tobacco 01/15/25 09:00 e-Cigarette/Vaping Use Currently Using 01/15/25 09:00 PHQ-9: PHQ-9 Score PHQ-9: Total score 3 01/15/25 09:00 Depression Screening Interpretation: Negative Thrive Assessment: Date of Thrive Assessment Date Thrive assessed 10/15/24 01/15/25 09:00 Currently or been in a relationship where the following occur: No concerns reported Const General: cooperative, healthy appearing, comfortable and no acute distress Orientation/consciousness: patient oriented x3 [facility] Head: Yes normocephalic Ears: hearing grossly normal bilaterally, external ears normal, TM's normal bilaterally and EAC's normal General nose exam: Normal external nose present Face and sinus: Yes normal facial exam and Yes sinuses nontender Mouth: Normal oral and palatal mucosa present and tongue normal Throat: Yes posterior oropharynx normal Eyes General: appearance normal, both eyes and all related structures Conjunctivae: conjunctivae normal Pupils: Equal, round and reactive pupils present EOM: EOMs intact bilaterally and No Nystagmus present Neck Neck: Yes normal visual inspection, Yes full ROM and Yes no lymphadenopathy Chest Chest palpation & inspection: normal inspection of the chest Resp Effort & Inspection: normal respiratory effort Auscultation: clear to auscultation bilaterally, no crackles, no rales, no rhonchi, no wheezes and breath sounds present Cardio Rate: regular rate Rhythm: regular rhythm Peripheral pulses: radial pulses present and dorsalis pedis present GI Inspection: Yes normal to inspection and No Abdominal wall edema Palpation (GI): Soft to palpation, not firm and nontender Auscultation: normal bowel sounds Rectal Exam - Female: deferred General: Yes no CVA tenderness Back/Spine/Pelvis Back: no CVA tenderness Skin General skin exam: no rashes or lesions noted Neuro General: patient oriented x3 Cranial nerves: Yes Equal, round and reactive pupils present, Yes Midline tongue present, Yes Ability to bilaterally elevate shoulders present and No Nystagmus present Gait exam (Neuro): Normal gait present Extrem General: Yes normal to inspection, Yes full ROM, No no pedal edema and No edema Psych Speech and movement: Normal speech and movement present Affect: normal affect Insight: Good insight present (Psych) Judgement: Good judgement present (Psych) Coding Level of Care Code Est Pt Prev Care 18-39y(98151) Diagnoses Annual physical exam Z00.00 Anxiety F41.9 Bipolar II disorder F31.81 Headache R51.9 Dysmenorrhea N94.6 Palpitation R00.2 Assessment & Plan Assessment & Plan (1) Annual physical exam: Code(s): Z00.00 - Encounter for general adult medical examination without abnormal findings Category: Medical Plan: Patient is due for Pap smear and referral has been placed to gynecology at last visit and is currently awaiting scheduled. She is due for tetanus vaccine which was declined today plan for next visit. Reminded patient about blood work and plan to follow up yearly or sooner as needed (2) Anxiety: Code(s): F41.9 - Anxiety disorder, unspecified Category: Medical Plan: Patient feels her anxiety is well managed at this time without the use of medication. Referral was placed to counseling at her last visit. (3) Bipolar II disorder: Code(s): F31.81 - Bipolar II disorder Category: Medical Plan: Patient was previously medicated for bipolar 2 disorder and follow up with a therapist in the past. She is not interested in medication management at this time and feels she is managing well without the use of medication. Referral was placed to counseling at last visit (4) Headache: Code(s): R51.9 - Headache, unspecified Category: Medical Plan: Headaches have resolved with the use of sumatriptan as needed. (5) Dysmenorrhea: Code(s): N94.6 - Dysmenorrhea, unspecified Category: Medical Plan: Referral was placed to gynecology at last visit. (6) Palpitation: Code(s): R00.2 - Palpitations Category: Medical Plan: Patient reporting intermittent palpitations happening approximately once monthly recommend patient to stop vaping and stay well hydrated. If becomes more consistent or symptomatic plan for Holter monitor. Plan This note was constructed using voice recognition software. While every effort has been made to ensure accuracy and weight analyst, still areas may have been included sometimes these areas may affect the content or meeting of the given symptoms. Total time spent caring for the patient today was 30 minutes. This includes time spent before the visit reviewing the chart, time spent during the visit, and time spent after the visit and documentation. Patient was informed and verbally consented to the use of an ambient scribe for clinic note documentation during this visit. Orders: Referrals Optometry Referral Z00.00 - Encounter for general adult medical examination without abnormal findings Medications: Refilled sumatriptan succinate take 1 tab at onset of headache; if no relief may repeat 1 tab after at least 2 hrs; max = 4 tabs/24 hr PO 30 tabs 1RF
--- OUTSIDE RECORDS SUMMARY | 2025-01-15 09:22 | XMS_ITS | Encounter Summary ---
Author Organization [facility] Address [address] [place] [id number] Phone Care Team Providers Care Machine Tool Technology Instructor Name Role Phone Unavailable Primary Care Provider Unavailabl e Encounter Details Date Type Department Care Team (Late st Contact Info) Description 03/23/2017 Conversion Encounter [facility] - [address] [address] Social History Tobacco Use Types Packs/Day Years Used Date Smoking Tobacco: Never Comments:Never smoker Comments Unknown Sex and Gender Information Value Date Recorded Sex Assigned at Not on file Legal Sex Female 5:20 PM EDT Gender Identity Not on file Sexual Orientation Not on file documented as of this encounter Plan of Treatment Not on file documented as of this encounter Visit Diagnoses Not on filedocumented in this encounter
--- OUTSIDE RECORDS SUMMARY | 2025-01-15 09:22 | XMS_ITS | Encounter Summary ---
Author Organization [facility] Address [address] [place] [phone] Phone Care Team Providers Care Gem Cutter Name Role Phone Unavailable Primary Care Provider Unavailabl e Encounter Details Date Type Department Care Team (Late st Contact Info) Description 05/26/2015 [place]ation [facility] [place] [facility] [address] Family Medicine, [place] [address] Social History Tobacco Use Types Packs/Day Years [...]
--- OUTSIDE RECORDS SUMMARY | 2025-01-15 09:22 | XMS_ITS | Encounter Summary ---
Author Organization [facility] Address [address] [place] [address] Phone Care Team Providers Care Planning Lead Name Role Phone Philippe Aguilar DO Primary Care Provider [phone] Philippe Aguilar DO Unavailable Joselin Kaminski Primary Care Provide r Arlene Lawrence MD Primary Care Provid er Philippe Aguilar DO Unavailable Serafin Thompson MD Unavailable [phone] Philippe Aguilar DO Unavailable Serafin Thompson MD Unavailable [phone] Encounter Details Date Type Department Care Team (Late st Contact Info) Description 07/02/2020 Procedure Pass [facility], [facility] Scan - [address] [address] Social History Tobacco Use Types Packs/Day Years Used Date Smoking Tobacco: Every Day Smokeless Tobacco: Never Comments:vaping Alcohol Use Standard Drinks/Week Comments Yes 0 (1 standard drink = 0.6 oz pur e alcohol) Comments Unknown Sex and Gender Information Value Date Recorded Sex Assigned at Female 11/09/2020 10:17 AM EDT Legal Sex Female 11:22 AM EST Gender Identity Female 11/09/2020 10:17 AM EDT Sexual Orientation Not on file documented as of this encounter Functional Status documented as of this encounter Plan of Treatment Not on file documented as of this encounter Visit Diagnoses Not on filedocumented in this encounter Additional Health Concerns Assessment Noted Time PHQ-2 Depression Total Score: 2 07/02/19 21 1:40 PM EST documented as of this encounter Care Teams Planning Lead Relationship Specialty Start Date End Date Philippe Aguilar DO [address] [place] [address] [address] [place] [address] [email or web address] PCP - General Family Medicine 07/02/20 10/25/20 Joselin Kaminski PA [address] [place] [id number] [email or web address] PCP - General 10/26/20 10/21/21 Arlene Lawrence MD [address] [place] [id number] [email or web address] PCP - General Family Medicine 10/22/21 03/31/24 Philippe Aguilar DO [address] [place] [address] [address] [place] [address] [email or web address] Insurance Assigned Provider 09/26/20 Philippe Aguilar DO [address] [place] [address] [address] [place] [address] [email or web address] Insurance Assigned Provider 09/26/20 Serafin Thompson MD [address] [place] [address], [address] [place] [address] [email or web address] Insurance Assigned Provider 11/27/2101/29 Philippe Aguilar DO [address] [place] [address], [address] [place] [address] [email or web address] Insurance Assigned Provider 01/29/22 Serafin Thompson MD [address] [place] [address], [address] [place] [address] [email or web address] Insurance Assigned Provider 11/26/22 documented as of this encounter Additional Source Comments The information contained in this document represents components of the legal health record. It is not the complete legal health record.[facility]
--- OUTSIDE RECORDS SUMMARY | 2025-01-15 09:22 | XMS_ITS | Encounter Summary ---
Author Organization [facility] Address [address] [place] [id number] Phone Care Team Providers Care Portable Trackman Name Role Phone Unavailable Primary Care Provider Unavailabl e Encounter Details Date Type Department Care Team (Late st Contact Info) Description 07/23/2009 [place] [facility] [place] [facility] [place] [address] Family Medicine, Physician [facility] [place] [address] Social History Tobacco Use Types Packs/Day Years [...]
--- OUTSIDE RECORDS SUMMARY | 2025-01-15 09:22 | XMS_ITS | Clinical Summary ---
Author Organization [facility] Address [address] [place] [id number] Phone Care Team Providers Care Publications Sales Representative Name Role Phone Unavailable Primary Care Provider Unavailabl e Allergies Active Allergy Reactions Criticality Noted Date Comments Amoxicillin Hives High 07/02/2020 Medications benzonatate (TESSALON) 100 MG capsuleIndications: Acute bronchitis, unspecified organism Take 1 capsule (100 mg total) by mouth 3 (three) times a day as needed for cough. 20 capsule 1 Active albuterol 90 mcg/actuation inhalerIndications: Acute bronchitis, unspecified organism Inhale 2 puffs into the lungs every 6 (six) hours as needed for wheezing. 1 Inhaler 1 Active lamoTRIgine (LAMICTAL) 25 MG IMMEDIATE release tablet Take 1 tablet (25 mg total) by mouth 2 (two) times a day. 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 Discontinued one week ago and monitoring for symptom improvement. No SI or thoughts of self harm -discussed several options including referral and/or partial hospitalization program. She is interested in starting with referral as she doesn't think she could get the time off from work do the partial program -will refer to given adverse effect of SSRI and family hx of bipolar disorder. She agrees with this plan -discussed starting to look for a therapist as wait times are long currently. -follow up in 2-3 months after consult and as needed in the interim Initiation of OCP (BCP) 10/26/2020 Assessment & Plan (11/19/2020 10:15 AM EDT): Previously counseled on risk/benefits and potential SE. Would like to resume her previous OCP. Currently finishing her menstrual period so would like to start that now. -start Apri daily Assessment & Plan (10/26/2020 10:05 AM EDT): Will contact her pharmacy to determine which OCP she had previously been taking as she would like to resume. Patient unable to leave urine for HCG testing. Encouraged waiting to start OCP until her next menstrual period, starting day 4-5 and she agrees with plan. Reviewed may take 2-3 months to regulate menstruation and to follow up if no improvement at that time. Encouraged to continue cutting back on vape pen use. Overall, she is still low risk for VTE but encouraged following up at any time if she develops calf pain/swelling, SOB. Anxiety 07/30/2020 Assessment & Plan (11/19/2020 10:14 AM EDT): Chronic. Recent improvement since starting sertraline 50mg daily. Denies SE. -will have her continue sertraline 25mg BID. discussed may continue to see additional improvement in anxiety over the next 3-4 weeks since she has only been on this medication for about 3 weeks at the 50mg dose. -plan to follow up in 6 months for recheck if she feels dose is effective, otherwise she will call to schedule a follow up with [facility] while I am out on leave. Assessment & Plan (10/26/2020 10:03 AM EDT): Chronic and uncontrolled. Starting to affect her functionality and causing symptoms of depression. buspar has been minimally helpful but causes sedation as well. Had discussion re: other medication options including SSRI's. -will have her start sertraline and titrate up to 50mg daily over the next 3-4 weeks -explained to patient that drugs of the SSRI class can potentially cause side effects such as weight gain, sexual dysfunction, insomnia, headache, nausea. I've made patient aware of the Black Box Warning associated with these medications and the importance of discontinuing medication and contacting our office if there are any concerns regarding increased thoughts of suicide. -she may continue to take the buspar 1-2x daily prn for anxiety while onboarding the sertaline -plan to follow up in 3-4 weeks for recheck or sooner if any concerns Assessment & Plan (09/30/2020 12:24 PM EDT): A virtual visit was used during the COVID-[address] of an in-person visit. This real-time interactive virtual clinical encounter was conducted using telephone-only technology from clinic or home office. The patient participated in the visit from home/temporary residence or other location as specified below. Consent for virtual care, including informing the patient that insurance will be billed, and that in-person care is available in case of emergencies or as needed otherwise, was discussed at the time of scheduling. Pt participated in visit from home. Barbra notes that her anxiety has improved with the BuSpar. She also notes that her sleep has improved with this medication. She recently received a refill thus she does not need any other refills at this time. She also notes that she will be leaving [facility] in the near future. I informed her to call if she needs refills or to call if there is any other issues or concerns. She understands and agrees. Assessment & Plan (09/02/2020 4:31 PM EDT): A virtual visit was used during the COVID-[address] of an in-person visit. This real-time interactive virtual clinical encounter was conducted using telephone-only technology from clinic or home office. The patient participated in the visit from home/temporary residence or other location as specified below. Consent for virtual care, including informing the patient that insurance will be billed, and that in-person care is available in case of emergencies or as needed otherwise, was discussed at the time of scheduling. Pt participated in visit from home. Barbra has anxiety and the hydroxyzine was helpful however it made her too tired thus she would not take it during the day and she is looking to try something different. We discussed BuSpar and she was interested in this. I started this medication-5 mg twice a day as needed. Guidance given regarding medication. She will call if there is any issues or side effects. Follow-up in 3 to 4 weeks. She understands and agrees to this plan. Assessment & Plan (07/30/2020 9:06 AM EST): A virtual visit was used during the COVID-[address] of an in-person visit. This real-time, interactive virtual clinical encounter was conducted using videoconferencing technology from clinic or home office. The patient participated in the visit from home/temporary residence or other location as specified below. Consent for virtual care, including informing the patient that insurance will be billed, and that in-person care is available in case of emergencies or as needed otherwise, was discussed at the time of scheduling. Pt participated in visit from home. Barbra has been having issues with anxiety for months now. This is affecting her mainly in the mornings. We did review the possibility of her being but she notes that she gets her periods regularly and is quite confident that she is not . We then discussed options to treat anxiety. She saw a therapist in the past but this was not the best of experiences. She is open to medication. We discussed medications. She is open to trying hydroxyzine. This medication was discussed along with the side effects. I advised her on how to take this medication. She will follow up in roughly a month for her CPE but she will call if there is any other issues or concerns prior to this. She understands and agrees with this plan. Syncope and collapse 07/02/2020 Assessment & Plan (07/02/2020 2:32 PM EST): Barbra presents as a new patient to [facility]. She will be signing a medical release form. Barbra had a syncopal episode on 06/27/2020 while at work. She notes that she could not be relieved at her work until her shift ended and then she went to seek medical advice. She was seen at [facility] and diagnosed with a concussion. I am unsure what led to her syncopal episode thus I am getting labs as well as an EKG which shows a sinus rhythm at 100 beats a minute and no ST or T wave inversion noted. I will update her with the labs when they come in. She is under a lot of stress due to work. Due to her postconcussive syndrome she will remain out of work for the next week and follow-up in 1 week. She will call if there is any other issues or concerns. She understands and agrees. Left wrist pain 07/02/2020 Assessment & Plan (07/02/2020 2:33 PM EST): Barbra has left wrist pain status post a syncopal episode noted on 06/27/2020. I will have her go for an x-ray and I will update her with the results. She is wearing a splint currently and advised her to continue with this. Follow-up as needed. She understands and agrees. Post-traumatic headache 07/02/2020 Assessment & Plan (07/02/2020 2:33 PM EST): Barbra currently has a posttraumatic headache and she notes that this is the worst headache of her life. This occurred after a fall and hit to the back of her head on 06/27/2020-syncopal episode. I will have her go for CT of her head and I will update her with the results. She understands and agrees. Laboratory examination order ed as part of a routine general medical examination 07/02/2020 Assessment & Plan (07/02/2020 2:33 PM EST): Barbra is due for labs and I will update her with the results. She understands and agrees. Mild intermittent asthma without complication Resolved Problems Problem Noted Date Diagnosed Date Resolved Date Post concussion syndrome 07/02/202004/2021 Assessment & Plan (07/30/2020 9:04 AM EST): Barbra has noted a great improvement in her symptoms and she is pleased with this. She is back to her more regular routine without any concerns. She is taking ibuprofen for an occasional headache but this resolves her symptoms. She would like to go back to work full-time. I wrote a note stating that she can return to work immediately without any restrictions. She will call if there is any other issues or concerns. She understands and agrees. Assessment & Plan (07/15/2020 9:05 AM EST): Barbra continues to have postconcussive syndromes secondary to a fall that occurred at work about a week ago. Her symptoms have not improved status post the next week. She has been undergoing brain rest and watching screen time. I reviewed her CT scan which was done on 07/02/2020 and this is reassuring. Due to the fact that she continues to have symptoms despite the rest I referred her to neurology for consult today. She will call make the appointment. I also will try Fioricet-to be taken as directed to see if I can break the headache. Lastly, I wrote a letter for her that she should present to work and she should also discuss things with HR as she has not yet filed for Workmen's Comp. regarding this. She will call if there is any other issues or concerns. Follow-up in 2 weeks. She understands and agrees. Assessment & Plan (07/02/2020 2:32 PM EST): Barbra was diagnosed with a postconcussive syndrome today in the office. Guidance was given and she will remain out of work for the next week. I wrote a note and I will see her back in 1 week. She will call if her symptoms get worse or if they change. She understands and agrees. Need for influenza vaccination 07/02/2020 09/30/2020 Assessment & Plan (07/02/2020 2:34 PM EST): Barbra is due for flu shot and this was done in the office today-no complications. Need for prophylactic vaccin ation against Streptococcus pneumoniae (pneumococcus) 07/02/2020 09/30/2020 Assessment & Plan (07/02/2020 2:34 PM EST): Barbra is due for a pneumonia vaccine and this was done in the office-no complications. Immunizations Immunization Administration Dates Next Due COVID-19 (Pre-03/13) Moderna Vaccine, Bivalent 6mo+ 02/28/2022,02/28/2022 COVID-19 (Pre-03/13) Pfizer Vaccine, mRNA, PF 09/26/2020,09/26/2020,09/26/2020,09/05,09/05/2020,09/05/2020 Dtap, 5 Pertussis Antigens 09/27/2004,,1999,09/23,1999 HPV,quadrivalent 04/26/2013,12/24/2012, 2 Hepatitis A, ped/adol, 2 dose 04/07/2015, 014 Hepatitis B 01/17/2001,03/24/2000,1999 Hepatitis B Adult 01/17/2001,03/24/2000,12/01/19 00 Hib,PRP-T 10/23/2000, 0,1999,07/14 IPV 09/27/2004, 0,1999,07/14 Influenza Quadrivalent Prese rvative Free IM 07/02/2020,2017,04/26/2013 Influenza Quadrivalent w/ Pr eservative IM 03/14/2016,04/07/2015 MMR 09/27/2004, 5,10/23/2000,10/23 Meningococcal MCV4P 2017,12/22/2011 Pneumococcal conjugate, PCV 7 05/11/2000, 000 Pneumococcal polysaccharide PPSV23 07/02/2020 Tdap 08/06/2010,08/06/2010 Varicella 12/22/2011, 2,05/11/2000,05/11 Family History Medical History Relation Comments ADD / ADHD Brother Heart attack Maternal Grandfather Migraines Mother Relation Status Comments Brother Alive Father Alive Maternal Grandfather Mother Alive Social History Tobacco Use Types Packs/Day Years Used Date Smoking Tobacco: Some Days Smokeless Tobacco: Never Alcohol Use Standard Drinks/Week Comments Yes 0 (1 standard drink = 0.6 oz pur e alcohol) Child or Family Care Answer Date Record ed Do you have problems with on e of the following making it difficult for you to work, study, or receive health care? No 10/26/2020 Education Answer Date Recorded Are you interested in more education? Not on inez e 11/02/2022 Are you concerned about learning? Not on file 11/02/2022 No 11/02/2022 No 11/02/2022 Food Answer Date Recorded Within the past 6 months we worried whether our food would run out before we got money to buy more. Never True 10/26/2020 Within the past 6 months the food we bought just didn't last and we didn't have enough money to get more. Never True Residential Stability Answer Date Recor ded What is your housing situation today? I have ankit guillen 10/26/2020 How many times have you moved in the past 12 mon ths? Two or more times 10/26/2020 06 Are you worried that in t he next 2 months, you may not have your own housing to live in? No 10/26/2020 Paying for Meds Answer Date Recorded Do you have trouble paying for medicines? No 10/26/2020 Paying Utility Bills Answer Date Record ed Do you have trouble paying your heating or elect ricity bill? No 10/26/2020 Transportation Answer Date Recorded Has the lack of transportati on kept you from medical appointments or from getting medications? No 10/26/2020 Unemployment Answer Date Recorded Are you currently unemployed or working on a part-time or temporary basis, and looking for work? Yes 10/26/2020 Digital Access Answer Date Recorded No 10/15/2022 No 10/15/2022 No 10/15/2022 Reliable internet access at home? Not on file 10/15/2022 Device with a working camera? Not on file Comments Unknown Sex and Gender Information Value Date Recorded Sex Assigned at Female 11/09/2020 10:17 AM EDT Legal Sex Female 11:22 AM EST Gender Identity Female 11/09/2020 10:17 AM EDT Sexual Orientation Not on file Last Filed Vital Signs Vital Sign Reading Time Taken Comments Blood Pressure 100/65 12/09/2021 12:02 PM EDT Pulse 80 12/09/2021 12:02 PM EDT Temperature 36.8 C (98.2 F) 12/09/2021 12:02 PM EDT Respiratory Rate 16 12/09/2021 12:02 PM EDT Oxygen Saturation 99% 12/09/2021 12:02 PM EDT Inhaled Oxygen Concentration - - Weight 54.4 kg (120 lb) 06/02/2021 9:48 AM EST Height 172.7 cm (5' 7.99 ) 06/02/2021 9:48 AM ES T Body Mass Index 18.25 06/02/2021 9:48 AM EST Plan of Treatment Health Maintenance Due Date Last Done Comments SMOKING Hx and SMOKELESS TOBACCO SCREENING 2012 PAP SMEAR 2020 Adult Td,Tdap Booster 08/06/2020 08/06/2010, 011 PNEUMOCOCCAL VACCINES (0-49 years) (2 of 2 - PCV) 07/02/2021 07/02/2020, 05/11/2000, 03/24/2000 DEPRESSION SCREENING 09/27/2022 09/27/2021, 09/28/19 22 COVID-19 VACCINE ( season) 2024 02/28/2022, 02/28/2022, 09/26/2020, Additional history exists HIB VACCINES Completed 10/23/2000, 11/19, 1999, Additional history exists HPV VACCINES Completed 04/26/2013, 09/2012, 12/22/2011 HEPATITIS A VACCINES Completed 04/07/2015, 12/20/19 14 MENINGOCOCCAL VACCINES (ACWY) Completed 2017, 12/22/2011 HEPATITIS C SCREENING Completed 07/03/2020, 021 HIV ONE-TIME SCREENING (18-65 YEARS) Completed 07/03/2020 MENINGOCOCCAL VACCINES (B) Aged Out N o longer eligible based on patient's age to complete this topic Medical Devices Not on file Procedures Procedure Name Priority Date/Time Associated Diagnosis Comments HEPATITIS C ANTIBODY, QUALITATIVE Routine 07/03/2020 8:54 AM EST Encounter for general adult medical examination with abnormal findings from Last 3 Months or Most Recently Relevant to Health Maintenance Results * Hepatitis C antibody, qualitative (07/03/2020 8:54 AM EST) HCV NON-REACTIV E NON-REACTI VE [facility] Blood 07/03/2020 8:54 AM EST 07/03/2020 8:58 AM EST us Philippe Aguilar DO LAB BLOOD ORDERABLES Final Resul t [facility] [address] [place] [address] from Last 3 Months or Most Recently Relevant to Health Maintenance Insurance [facility] EPO [facility] [place] [address] [place] [address] [place] [address] [place] [address] [address] [place] [address] [address] [place] [address] [place] [address] [place] [address] [place] [address] [place] [address] [place] [address] [place] [address] PPO EPO Additional Source Comments The information contained in this document represents components of the legal health record. It is not the complete legal health record.[facility]
--- OUTSIDE RECORDS SUMMARY | 2025-01-15 09:22 | XMS_ITS | Clinical Summary ---
Author Organization [facility] Address [address] [place] [phone] Phone Care Team Providers Care Community Board Member Name Role Phone Unavailable Primary Care Provider Unavailabl e Allergies No known active allergies Medications desogestrel-eth inyl estradiol (APRI) 0.15-30 MG-MCG per tablet Take by mouth. 7 Active albuterol HFA 108 (90 Base) MCG/ACT inhalerIndicati ons:Cough INHALE 2 PUFFS INTO THE LUNGS EVERY 4 HOURS NEEDED FOR WHEEZING OR SHORTNESS OF BREATH 1 Units 8 Active Active Problems Problem Noted Date Diagnosed Date Menorrhagia with regular cycle 2017 Acne vulgaris 12/24/2012 Mild intermittent asthma without complication Immunizations Immunization Administration Dates Next Due DTaP 5 09/27/2004, 1,1999,09/23,1999 HPV, Quadrivalent 04/26/2013,12/24/2012,12/22/19 12 Hep A, ped/adol 04/07/2015,12/19/2013 Hep B, ped/adol 01/17/2001,03/24/2000,1999 Hib (PRP-T) 10/23/2000, 0,1999,07/14 IPV 09/27/2004, 0,1999,07/14 Influenza, injectable, quadrivalent 03/14/2016,1 06/07/2014 Influenza, injectable, quadr ivalent, preservative free 2017,04/26/2013 MMR 09/27/2004,10/23/2000 Meningococcal Conj (Menactra) MCV4P 2017,0 12/22/2011 Pneumococcal Conjugate 05/11/2000,03/24/2000 Tdap 08/06/2010 Varicella 12/22/2011,05/11/2000 Family History Medical History Relation Name Comments No Known Problems Brother No Known Problems Father Diabetes Maternal Grandfather Diverticulitis Maternal Grandfather Heart disease Maternal Grandfather Hypertension Maternal Grandfather No Known Problems Mother Relation Name Status Comments Brother Alive Father Alive Maternal Grandfather Mother Alive Social History Tobacco Use Types Packs/Day Years Used Date Smoking Tobacco: Never Smokeless Tobacco: Never Comments:Never smoker Alcohol Use Standard Drinks/Week Comments No 0 (1 standard drink = 0.6 oz pur e alcohol) Comments No Sex and Gender Information Value Date Recorded Sex Assigned at Not on file Legal Sex Female 5:20 PM EDT Gender Identity Not on file Sexual Orientation Not on file Last Filed Vital Signs Vital Sign Reading Time Taken Comments Blood Pressure 115/80 11/11/2019 8:39 AM EDT Pulse 81 11/11/2019 8:39 AM EDT Temperature 36.2 C (97.1 F) 11/11/2019 8:39 AM EDT Respiratory Rate - - Oxygen Saturation - - Inhaled Oxygen Concentration - - Weight 63.6 kg (140 lb 3.2 oz) 11/11/2019 8:39 A M EDT Height 172.7 cm (5' 8 ) 11/11/2019 8:39 AM EDT Body Mass Index 21.32 11/11/2019 8:39 AM EDT Plan of Treatment Health Maintenance Due Date Last Done Comments DTaP,Tdap,and Td Vaccines (7 - Td or Tdap) 08/06/2020 08/06/2010, 09/27/2004, 01/17/2001, Additional history exists COVID-19 Vaccine ( season) 2024 Influenza Vaccines (#1) 2024 05/10/20 17, 03/14/2016, 04/07/2015, Additional history exists Pneumococcal Vaccine Aged Out 05/11/2000, 03/24/20 00 No longer eligible based on patient's age to complete this topic HIB Vaccines Completed 10/23/2000, 11/19, 1999, Additional history exists Hepatitis B Vaccines Completed 01/17/2001, 03/24/2000, 1999 IPV Vaccines Completed 09/27/2004, 07/1999, 1999, Additional history exists MMR Vaccines Completed 09/27/2004, 10/23/2000 Varicella Vaccines Completed 12/22/2011, 05/11/2000 HPV Vaccines Completed 04/26/2013, 09/2012, 12/22/2011 Hepatitis A Vaccines Completed 04/07/2015, 12/20/19 14 Meningococcal Vaccine Completed 2017, 012 Men B Vaccine Aged Out No longer elig ible based on patient's age to complete this topic Insurance [facility] PPO
== END 2025-01-15 09:44 | disposition home or self-care (01) ==
LOC: HO.HMCH 08:54
DX: Z00.00 Encounter for general adult medical examination without abnormal findings (principal); F41.9 Anxiety disorder, unspecified; F31.81 Bipolar II disorder; R51.9 Headache, unspecified; N94.6 Dysmenorrhea, unspecified; R00.2 Palpitations